=== PATIENT | female | born 1975 | race Caucasian/White ===

== ENCOUNTER 2020-04-10 16:55 | Emergency (ER) | payer OTHER, SELFPAY ==
--- NOTE | ~2020-04-10 | XR_ITS ---
EXAMINATION: XR chest 1V portable DATE: 04/10/2020 17:28 INDICATION: Shortness of breath, nausea and diarrhea TECHNIQUE: frontal view of the chest was obtained. COMPARISON: Chest radiograph dated 11/28/2017 FINDINGS: The lungs remain clear with no focal airspace opacities, pulmonary edema, pleural effusion or pneumot horax. Heart size is normal. Again seen is a moderate-sized hiatal hernia. Visualized bones and soft tissues are unremarkable. IMPRESSION: 1. No acute cardiopulmonary disease. 2. Moderate-sized hiatal hernia. Reviewed, dictated and finalized at location A.
--- NOTE | ~2020-04-10 | CT_ITS ---
EXAMINATION: CT abdomen pelvis w con DATE: 04/10/2020 18:39 INDICATION: Abdominal pain TECHNIQUE: Computed tomography (CT) of the abdomen and pelvis was performed with 100 mL Omnipaque-350 intravenous contrast. Automated exposure control and iterative reconstruction technique were employe d. The dose-length product was 1433.40 mGy-cm. COMPARISON: None FINDINGS: Mild discoid atelectasis at the lingula. Heart size is normal. No pericardial or pleural effusion. Mo derate-sized sliding-type hiatal hernia. Liver, gallbladder, spleen, pancreas, bilateral adrenal glan ds and kidneys are normal. Small fat-containing umbilical hernia. Oral contrast material throughout t he the bowels but no evident wall thickening or obstruction. There is also contrast within the normal appendix. Bladder, anteverted uterus and right adnexa are unremarkable. There appears be a tubal lig ation clip at the left adnexa. A second likely displaced tubal ligation clip is seen in the posterior left pelvis. No free intraperitoneal gas or fluid. No pathologically enlarged abdominal or pelvic ly mphadenopathy. Severe spondylosis at the thoracolumbar and lumbosacral junctions. Transitional partia lly lumbarized S1 segment. IMPRESSION: 1. No acute intra-abdominal/pelvic process. 2. Moderate-sized sliding-type hiatal hernia. 3. Small fat-containing umbilical hernia. 4. Likely tubal ligation clips at the left adnexa with a second likely displaced tubal ligation clip remote from the adnexa in the posterior left hemipelvis. Reviewed, dictated and finalized at location A. IMPRESSION: 1. No acute intra-abdominal/pelvic process. 2. Moderate-sized sliding-type hiatal hernia. 3. Small fat-containing umbilical hernia. 4. Likely tubal ligation clips at the left adnexa with a second likely displace d tubal ligation clip remote from the adnexa in the posterior left hemipelvis.
[2020-04-10 16:59] VITALS: BP 123/79; PULSE 96; RESP 20; TEMP 36.7; O2SAT 100
--- NOTE | 2020-04-10 17:18 | ED.ABDPAIN ---
HPI - Abdominal Pain General Chief Complaint: Abdominal Pain <VASYL De Oliveira Last Filed: 04/10/20 20:27> Stated Complaint: cough, fever <VASYL De Oliveira Filed: 04/10/20 20:27> Time Seen by Provider: 04/10/20 17:05 <VASYL De Oliveira Last Filed: 04/10/20 20:27> Source: patient <VASYL De Oliveira Last Filed: 04/10/20 20:27> Mode of arrival: ambulatory <VASYL De Oliveira Filed: 04/10/20 20:27> Limitations: no limitations <VASYL De Oliveira Filed: 04/10/20 20:27> History of Present Illness HPI narrative: Patient is a 45-year-old female who presents to emergency department for evaluation of abdominal pain localized to the right upper quadrant flank area that is been present for 1 month patient notes daily pain patient has not been seen for this complaint notes that over the last 3 days she has had some loose stools and intermittent vomiting patient presents per private vehicle in no distress does not appear uncomfortable is also had a cough that is nonproductive but denies other URI symptoms and does note 2 pack/day smoking history <VASYL De Oliveira Filed: 04/10/20 20:27> Related Data Home Medications: Home Medications Medication Instructions Recorded Confirmed albuterol sulfate INHALATION 04/10/20 cyclobenzaprine mg 04/10/20 indomethacin 04/10/20 lorazepam 04/10/20 norethindrone acetate mg 04/10/20 omeprazole 04/10/20 <VASYL De Oliveira Last Filed: 04/10/20 20:27> Allergies/Adverse Reactions: Allergies Allergy/AdvReac Type Severity Reaction Status Date / Time No Known Allergies Allergy Mild Verified 04/10/20 17:49 <VASYL De Oliveira Last Filed: 04/10/20 20:27> Review of Systems Review of Systems: All systems reviewed & are unremarkable except as noted in HPI and below <VASYL De Oliveira Last Filed: 04/10/20 20:27> [facility] Past Medical History Medical History: Medical History (Updated 04/10/20 @ 20:22 by Michael Metzger PA-C) Obesity <Michael Metzger PA-C - Last Filed: 04/10/20 20:27> Family History Family History: Family History (Updated 02/18/14 @ 09:29 by DOCTOR UNKNOWN) Other Cerebrovascular accident Diabetes mellitus Family history of arthritis Family history of cardiovascular disease Family history of gout Family history of malignant neoplasm Hypertension <Michael Metzger PA-C - Last Filed: 04/10/20 20:27> Social History Social History: Social History (Updated 04/10/20 @ 17:22 by Michael Metzger PA-C) Smoking status: Current every day smoker Alcohol intake: current <Michael Metzger PA-C - Last Filed: 04/10/20 20:27> Exam Narrative: Exam Narrative: GENERAL: Well-appearing, obese, and in no acute distress. HEAD: Normocephalic, atraumatic. EYES: PERRLA and EOMI. ENT: Nares clear, no rhinorrhea or epistaxis. Mucous membranes moist. Oropharynx without tonsillar hypertrophy exudate or other lesions. NECK: Supple. No adenopathy or masses. CHEST: Clear to auscultation. No respiratory distress. Coarse breath sounds with expiratory wheezes throughout HEART: Regular rate and rhythm. No murmur heard. Normal peripheral pulses. ABDOMEN: Soft, tenderness in the right abdomen no rebound or guarding, nondistended EXTREMITIES: Normal range of motion. No edema. SKIN: Warm, dry, no rash. NEURO: No focal deficits. Alert and oriented x3. PSYCH: Normal mood and affect. <Michael Metzger PA-C - Last Filed: 04/10/20 20:27> Course Course Emergency Course: Patient in the room at this time aware of case findings treatment plan and diagnosis patient feels comfortable for discharge home and follow-up with primary care patient. Was hydrated and given medications with improvement afebrile nontoxic-appearing without emesis guaiac negative. Patient will follow-up for her COPD and anemia findings and abdom
[2020-04-10 17:54] LABS: Basophils Absolute Auto 0.1 K/mm3 (0.0-0.1); Basophils Percent Auto 0.5 % (0.2-1.2); Eosinophils Absolute Auto 0.1 K/mm3 (0-0.3); Eosinophils Percent Auto 1.1 % (0-4.4); Immature Granulocyte Absolute 0.02 K/mm3 (0.00-0.031); Immature Granulocyte Percent A 0.2 % (0-0.5); Lymphocytes Percent Auto 19.7 % (18.3-44.2); Mean Corpuscular HGB Conc 27.6 g/dl (32-36); Mean Corpuscular Hemoglobin 19.8 pg (26-34); Mean Corpuscular Volume 71.6 fl (80-100); Mean Platelet Volume 11.4 fl (7.4-10.4); Monocytes Absolute Auto 0.7 K/mm3 (0.1-0.6); Monocytes Percent Auto 7.2 % (2.6-8.5); Neutrophils Absolute Auto 6.5 K/mm3 (1.3-6.7); Neutrophils Percent Auto 71.3 % (45.5-73.1); Platelet Count Result 227 k/mm3 (150-375); Red Blood Count 4.05 M/mm3 (4.2-5.4); Red Cell Distribution Width 19.4 % (11.5-14.5); White Blood Count 9.2 K/mm3 (4.5-10.0)
[2020-04-10 17:55] LABS: Add Urine Microscopic? YES; Appearance Urine Clear (Clear); Bacteria Urine Trace /hpf; Bilirubin Urine 1+ (Negative); Blood Urine Negative (Negative); Color Urine Yellow (Yellow); Glucose Urine UA Negative (Negative); Ketones Urine Negative (Negative); Leukocyte Esterase Ur Trace LEU/UL (Negative); Mucus Urine Heavy /lpf; Nitrate Urine Negative (Negative); Protein Urine 1+ mg/dL (Negative); RBC Urine 0-2 /hpf (0-2); Squamous Epithelial Cell Urine Many /hpf (Few); Urobilinogen Urine Negative mg/dL (<2.0); WBC Urine 0-3 /hpf
[2020-04-10 17:58] LABS: Specific Grav Ur 1.031 (1.001-1.035)
[2020-04-10] MEDS: SODIUM CHLORIDE 0.9% IV 1,000 ML 999 ML IV CONT (17:58)
[2020-04-10] MEDS: ONDANSETRON INJ 4 MG/2 ML VIAL IV PUSH (17:58)
[2020-04-10] MEDS: FAMOTIDINE 20 MG/2 ML VIAL IV PUSH (17:59)
[2020-04-10 18:00] LABS: Prothrombin Time 13.1 Seconds (11.1-14.7)
[2020-04-10 18:01] LABS: Partial Thromboplastin Time 27.2 SECONDS (22.3-36.8)
[2020-04-10 18:04] LABS: Platelet Estimate Adequate (Adequate)
[2020-04-10 18:05] LABS: Anisocytosis 1+ (NORMAL); Hypochromasia 1+ (NORMAL)
[2020-04-10 18:07] LABS: Alanine Aminotransferase 15 U/L (4-35); Albumin Level 3.9 g/dL (3.5-5.1); Alkaline Phosphatase 47 U/L (38-126); Amphetamine Screen Urine Negative (Negative); Anion Gap 7 mmol/L (8-16); Aspartate Amino Transferase 21 U/L (14-36); Barbiturate Screen Urine Negative (Negative); Benzodiazepines Screen Urine Positive (Negative); Bilirubin,Total 0.4 mg/dL (0.2-1.3); Blood Urea Nitrogen 11 mg/dL (7-17); CRP 0.7 mg/dL (<1.0); Calcium 8.7 mg/dL (8.4-10.2); Cannabinoid Screen Urine Negative (Negative); Carbon Dioxide 24 mmol/L (22-30); Chloride 112 mmol/L (98-107); Cocaine Screen Urine Negative (Negative); Estimated CRCL calculation 84 ml/min; Estimated Glomerular Filt Rate > 60; Glucose 115 mg/dL (65-105); Lipase 49 U/L (23-300); Methadone Screen Urine Negative (Negative); Opiate Screen Urine Negative (Negative); Phencyclidine Screen Urine Negative (Negative); Sodium 143 mmol/L (137-145)
--- NOTE | 2020-04-10 18:27 | PC.NURSE ---
Pt's blood being redrawn due to hemolyzation.
--- NOTE | 2020-04-10 19:15 | PC.NURSE ---
Report to REBECCA Green, to continue care.
--- NOTE | 2020-04-10 19:34 | PC.NURSE ---
Assumed care of patient at this time. Patient report received from REBECCA Ferrell.
[2020-04-10 19:49] LABS: Lactic Acid Reflex 0.8 mmol/L (0.7-2.1)
[2020-04-10 19:52] LABS: Alveolar/Arterial O2 Gradient 11.2 mmHg; Base Excess ABG -3.6 mEq/l (+/-2.0); Carboxyhemoglobin 1.1 % THb (0-2.0); Fractional Inspired Oxygen 21 %; HCO3 ABG 20.3 mEq/l (22.0-26.0); Methemoglobin ABG 0.4 %THb (0-1.5); Oxygen Content ABG 10.5 %vol (16.0-22.0); Oxygen Saturation ABG 97.8 % (95.0-100.0); Oxyhemoglobin 95.5 % THb (90.0-100.0); PCO2 ABG 31.6 mmHg (35.0-45.0); PO2 ABG 100.7 mmHg (80.0-100.0); pH ABG 7.425 (7.350-7.450)
[2020-04-10 19:53] LABS: Device ROOM AIR; Site Drawn RIGHT BRACHIAL; Total Hemoglobin 7.7 g/dL (12.0-18.0)
[2020-04-10 20:07] VITALS: BP 106/59; BP 117/49; PULSE 84; PULSE 88
[2020-04-10 20:08] VITALS: BP 113/79; PULSE 88
--- NOTE | 2020-04-10 20:15 | PC.NURSE ---
Patient ambulated with a steady gait to the bathroom and back to her room.
== END 2020-04-10 20:36 | disposition home or self-care (01) ==
PROVIDERS: Emergency Medicine Emergency Medical Services; Emergency Provider General Practice; PCP Family Medicine Adolescent Medicine
DX: J44.1 Chronic obstructive pulmonary disease with (acute) exacerbation (principal); D64.9 Anemia, unspecified; R10.11 Right upper quadrant pain; F17.210 Nicotine dependence, cigarettes, uncomplicated; E66.9 Obesity, unspecified; Z68.41 Body mass index [BMI] 40.0-44.9, adult; K44.9 Diaphragmatic hernia without obstruction or gangrene; K42.9 Umbilical hernia without obstruction or gangrene
CPT/HCPCS: 36415; 36600; 71045; 74177; 80053; 80307; 81001; 82375; 82805; 83050; 83605; 83690; 85025; 85055; 85610; 85730; 86140; 96361; 96365; 96375; 99284; J0131; J2405; J7030; Q9967

== ENCOUNTER 2021-06-13 14:22 | Emergency (ER) | payer OTHER, SELFPAY ==
[2021-06-13 14:32] VITALS: BP 101/83; PULSE 72; RESP 16; TEMP 36.7; O2SAT 100
--- NOTE | 2021-06-13 14:48 | ED.EXTPRO ---
HPI - Extremity Problem General Chief complaint: Extremity Problem,Nontraumatic Stated complaint: Left Leg Pain Time Seen by Provider: 06/13/21 14:35 Source: patient and RN notes reviewed Mode of arrival: ambulatory Limitations: no limitations History of Present Illness HPI Narrative: Vaishnavi is a 46-year-old female patient ambulated into the [facility]. Patient states she fell at work on motion that was on the floor greater than 2 months ago. Patient states she originally had spasms and cramps to the left leg that she treated with magnesium, vitamin D and calcium. Patient states she is has had pain to the back of the knee and the left buttock since the injury. Patient is currently already on gabapentin, indomethacin, Flexeril, and tramadol from her primary care physician. Patient states she is also use Motrin or Tylenol and heat as needed. Patient states that the left hip pain is only when she is sleeping for long periods of time. Patient states she just picked up 120 tramadol on 06/01. MD Complaint: extremity pain Related Data Home Medications Medication Instructions Recorded Confirmed cyclobenzaprine mg 04/10/20 10/19/20 indomethacin 04/10/20 10/19/20 norethindrone acetate mg 04/10/20 10/19/20 omeprazole 04/10/20 10/19/20 dicyclomine 20 mg tablet 20 mg PO BID 09/30/20 10/19/20 gabapentin 300 mg capsule 300 mg PO BID 09/30/20 10/19/20 oxybutynin chloride 5 mg tablet 5 mg PO DAILY 09/30/20 10/19/20 furosemide 20 mg tablet 20 mg PO QAM 10/12/20 10/19/20 albuterol sulfate INHALATION 06/13/21 Allergies Allergy/AdvReac Type Severity Reaction Status Date / Time No Known Allergies Allergy Mild Verified 06/13/21 14:39 Review of Systems Review of Systems: CONSTITUTIONAL: Denies body aches, fever, chills, or sweats. EYES: Denies visual changes, redness, or discharge. ENT: Denies rhinorrhea, congestion, sore throat, or otalgia. CARDIOVASCULAR: Denies chest pain, palpitations, or edema. RESPIRATORY: Denies cough or dyspnea. GASTROINTESTINAL: Denies abdominal pain, nausea, vomiting, or diarrhea. GENITOURINARY: Denies dysuria or hematuria. SKIN: Denies rash, itching, or wounds. MUSCULOSKELETAL: + left knee pain and hip pain when sleeping NEUROLOGIC: Denies headache, numbness, tingling, or weakness. PSYCH: Denies depression or anxiety. All systems reviewed & are unremarkable except as noted in HPI and below PMFSH Past Medical History Medical History Obesity Overactive bladder Surgical History Surgical History History of colonoscopy History of esophagogastroduodenoscopy (EGD) History of tubal ligation Family History Family History Father Diabetes mellitus Hypertension Grandparent Carcinoma of colon Other Cerebrovascular accident Family history of arthritis Family history of cardiovascular disease Family history of gout Family history of malignant neoplasm Social History Social History Smoking packs per day: 1 Smoking cigarettes per day: 20.0 Years smoked: 20 Smoking pack-years: 20.00 Smoking status: Current every day smoker Tobacco type: cigarettes Alcohol intake: current 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 Please see nursing chart for further information. There is no relevant family history pertinent to the presenting complaint Exam Narrative: GENERAL: Well-appearing, well-nourished, and in no acute distress. HEAD: Normocephalic, atraumatic. EYES: EOMI. No redness or drainage. Conjunctivae normal. ENT: Mucous membranes pink and moist. Nares clear. No rhinorrhea. NECK: Normal AROM. Supple.
== END 2021-06-13 15:00 | disposition home or self-care (01) ==
PROVIDERS: Emergency Provider Nurse Practitioner Family; PCP Family Medicine Adolescent Medicine
DX: M25.561 Pain in right knee (principal); F17.210 Nicotine dependence, cigarettes, uncomplicated; E66.9 Obesity, unspecified; Z68.41 Body mass index [BMI] 40.0-44.9, adult
CPT/HCPCS: 99213; G0463

== ENCOUNTER 2021-10-17 18:05 | Emergency (ER) | payer OTHER, SELFPAY ==
--- NOTE | ~2021-10-17 | CT_ITS ---
EXAMINATION: CT abdomen pelvis w con EXAM DATE: 10/17/2021 23:27 INDICATION: Right abdominal pain. Nausea and diarrhea and chills. TECHNIQUE: Spiral CT of the abdomen and pelvis was performed following intravenous injection of 100 m L Omnipaque 350. Axial, coronal and sagittal images of the abdomen and pelvis were reviewed. The do se-length product (DLP) for this examination was 1313.87 mGy-cm. The exposure was tailored according to patient size (auto mA exposure control), and iterative reconstruction (ASIR) was used as addition al dose reduction technique. Comparison is made to prior examination from 04/10/2020. FINDINGS: The liver, spleen, adrenal glands and pancreas are unremarkable. Gallbladder is unremarkab le. No biliary obstruction. Portal and splenic veins are patent. Kidneys enhance symmetrically. T here is no hydronephrosis. The uterus is unremarkable. The bladder is unremarkable. There is no retroperitoneal or pelvic lymphadenopathy. Small umbilical fat-containing hernia. The appendix is normal. There is moderate-sized gastroesophageal hiatal hernia with adjacent subsegm ental atelectasis. There is expected amount of colonic stool. No free intraperitoneal gas. The h eart is normal in size. There are no pericardial or pleural effusions. The lung bases are unremarka ble. There are no osteoblastic or osteolytic lesions identified. IMPRESSION: 1. No acute intra-abdominal findings. 2. Moderate-sized gastroesophageal hiatal hernia. Reviewed, dictated and finalized at location B.
[2021-10-17 18:16] VITALS: BP 149/117; PULSE 87; RESP 17; TEMP 36.9; O2SAT 100
--- NOTE | 2021-10-17 19:58 | ED.ABDPAIN ---
HPI - Abdominal Pain General Chief Complaint: Abdominal Pain Stated Complaint: RUQ pain Time Seen by Provider: 10/17/21 19:58 Source: patient Mode of arrival: ambulatory Limitations: no limitations History of Present Illness HPI narrative: Patient is 46 years old white female Related Data Home Medications Medication Instructions Recorded Confirmed indomethacin 04/10/20 08/11/21 norethindrone acetate mg 04/10/20 08/11/21 gabapentin 300 mg capsule 300 mg PO BID 09/30/20 08/11/21 ferrous sulfate 325 mg (65 mg 325 mg PO DAILY 08/11/21 08/11/21 iron) tablet vitamin B complex 1 tablet PO DAILY 08/11/21 08/11/21 Allergies Allergy/AdvReac Type Severity Reaction Status Date / Time No Known Allergies Allergy Mild Verified 08/11/21 09:33 [facility] Past Medical History Medical History (Updated 08/09/21 @ 10:03 by Isabela Mendoza PA-C) Chronic low back pain Obesity Overactive bladder Umbilical hernia Surgical History Surgical History History of colonoscopy History of esophagogastroduodenoscopy (EGD) History of tubal ligation Family History Family History (Updated 08/11/21 @ 09:38 by Vangie Patton MA) Father Diabetes mellitus Hypertension Cerebrovascular accident Grandparent Carcinoma of colon Family history of malignant neoplasm Father Acute myocardial infarction Colon polyp Family history of gout Mother Depression Other Family history of arthritis Social History Social History (Updated 08/11/21 @ 09:39 by Vangie Patton MA) Smoking packs per day: 1.2 Smoking cigarettes per day: 24.0 Years smoked: 20 Smoking pack-years: 24.00 Smoking status: Current every day smoker Tobacco type: cigarettes Alcohol intake: former Substance use: never Substance use type: does not use 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 Gender identity (if verbalized by the patient): Female Sexual Orientation (if Verbalized by the Patient): Straight or Heterosexual Spiritual care concerns: No Agree to blood products: Yes Course Vital Signs Vital signs: Vital Signs Temperature 36.9 C 10/17/21 18:16 Pulse Rate 87 10/17/21 18:16 Respiratory Rate 17 10/17/21 18:16 Blood Pressure 149/117 H 10/17/21 18:16 Pulse Oximetry 100 10/17/21 18:16 Temperature 36.9 C 10/17/21 18:16 Pulse Rate 87 10/17/21 18:16 Respiratory Rate 17 10/17/21 18:16 Blood Pressure 149/117 H 10/17/21 18:16 Pulse Oximetry 100 10/17/21 18:16 Discharge Plan Discharge Prescriptions: No Action gabapentin 300 mg capsule 300 mg PO BID RF: 0 ferrous sulfate [Feosol] 325 mg (65 mg iron) tablet 325 mg PO DAILY RF: 0 vitamin B complex [B Complex-Vitamin B12] Tablet 1 tablet PO DAILY RF: 0 bupropion HCl 150 mg tablet sustained-release 12 hr 150 mg PO BID Qty: 60 RF: 2 indomethacin 50 mg capsule RF: 0 norethindrone acetate 5 mg tablet RF: 0 cyclobenzaprine 10 mg tablet 10 mg PO TID PRN (Reason: muscle spasm) Qty: 30 RF: 3 albuterol sulfate 90 mcg/actuation HFA aerosol inhaler 2 inh INHALATION QID PRN (Reason: shortness of breath or wheezing) Qty: 8.5 RF: 4 trazodone 50 mg tablet 50 mg PO QHS PRN (Reason: insomnia) Qty: 30 RF: 2 tramadol 50 mg tablet See Rx Instructions PO Q6H PRN (Reason: pain) Qty: 120 RF: 3 omeprazole 20 mg capsule,delayed release(DR/EC) 20 mg PO BID Qty: 60 RF: 5
[2021-10-17] MEDS: SODIUM CHLORIDE 0.9% IV 1,000 ML 999 ML IV CONT (20:25)
[2021-10-17 20:35] LABS: Basophils Absolute Auto 0.1 K/mm3 (0.0-0.1); Basophils Percent Auto 0.5 % (0.2-1.2); Eosinophils Absolute Auto 0.1 K/mm3 (0-0.3); Eosinophils Percent Auto 0.9 % (0-4.4); Hematocrit 42.5 % (37.0-47.0); Hemoglobin 13.8 g/dL (12.0-15.0); Immature Granulocyte Absolute 0.02 K/mm3 (0.00-0.031); Immature Granulocyte Percent A 0.2 % (0-0.5); Lymphocytes Absolute Auto 2.39 K/mm3 (0.9-3.2); Lymphocytes Percent Auto 26.1 % (18.3-44.2); Mean Corpuscular HGB Conc 32.5 g/dl (32-36); Mean Corpuscular Hemoglobin 28.4 pg (26-34); Mean Corpuscular Volume 87.4 fl (80-100); Mean Platelet Volume 10.9 fl (7.4-10.4); Monocytes Absolute Auto 0.6 K/mm3 (0.1-0.6); Monocytes Percent Auto 6.6 % (2.6-8.5); Neutrophils Percent Auto 65.7 % (45.5-73.1); Platelet Count Result 256 k/mm3 (150-375); Red Blood Count 4.86 M/mm3 (4.2-5.4); Red Cell Distribution Width 15.3 % (11.5-14.5); White Blood Count 9.2 K/mm3 (4.5-10.0)
[2021-10-17 20:42] LABS: Appearance Urine Clear (Clear); Bilirubin Urine 2+ (Negative); Glucose Urine UA Negative (Negative); Ketones Urine 2+ mg/dL (Negative); Leukocyte Esterase Ur Trace LEU/UL (Negative); Nitrate Urine Negative (Negative); Protein Urine 1+ mg/dL (Negative); Specific Grav Ur >= 1.030 (1.001-1.035)
[2021-10-17 20:47] LABS: Add Urine Microscopic? YES; Blood Urine Trace-Intact (Negative); Color Urine Dark Brown (Yellow)
[2021-10-17 21:07] LABS: Bacteria Urine Trace /hpf; Mucus Urine Heavy /lpf; RBC Urine 0-2 /hpf (0-2); Squamous Epithelial Cell Urine Many /hpf (Few)
[2021-10-17] MEDS: ONDANSETRON INJ 4 MG/2 ML VIAL IV PUSH (21:48)
[2021-10-17] MEDS: MORPHINE SULFATE (*CRX) 4 MG/ML INJ IV PUSH (21:50)
--- NOTE | 2021-10-17 22:20 | PC.NURSE ---
RN called lab about pending CMP. Lab states CMP will be released soon per lab. PT and CT made aware.
[2021-10-17 22:41] VITALS: BP 154/88; PULSE 89; RESP 16; O2SAT 98
--- NOTE | 2021-10-17 22:46 | PC.NURSE ---
attempted to call lab about CMP with no answer.
--- NOTE | 2021-10-17 22:52 | PC.NURSE ---
RN attempted to reach lab multiple times with no success. TORINA stated she was able to get a hold of lab and they state the pateints CMP that has been pending for an hour half is hemolyzed and needs redrawn.
[2021-10-17 23:15] LABS: Alanine Aminotransferase 13 U/L (4-35); Albumin Level 3.6 g/dL (3.5-5.1); Alkaline Phosphatase 60 U/L (38-126); Anion Gap 8 mmol/L (8-16); Aspartate Amino Transferase 22 U/L (14-36); Bilirubin,Total 0.6 mg/dL (0.2-1.3); Blood Urea Nitrogen 14 mg/dL (7-17); Calcium 7.8 mg/dL (8.4-10.2); Carbon Dioxide 15 mmol/L (22-30); Chloride 116 mmol/L (98-107); Estimated Glomerular Filt Rate > 60; Glucose 90 mg/dL (65-110); Potassium 3.5 mmol/L (3.4-5.0); Sodium 139 mmol/L (137-145)
[2021-10-17 23:28] LABS: Lipase 53 U/L (23-300)
[2021-10-18 00:55] VITALS: BP 150/93; PULSE 82; RESP 16; TEMP 36.8; O2SAT 98
--- NOTE | 2021-10-18 01:03 | ED.ABDPAIN ---
HPI - Abdominal Pain General Chief Complaint: Abdominal Pain Stated Complaint: RUQ pain Time Seen by Provider: 10/17/21 19:58 Source: patient Mode of arrival: ambulatory Limitations: no limitations Related Data Home Medications Medication Instructions Recorded Confirmed indomethacin 04/10/20 08/11/21 norethindrone acetate mg 04/10/20 08/11/21 gabapentin 300 mg capsule 300 mg PO BID 09/30/20 08/11/21 ferrous sulfate 325 mg (65 mg 325 mg PO DAILY 08/11/21 08/11/21 iron) tablet vitamin B complex 1 tablet PO DAILY 08/11/21 08/11/21 Allergies Allergy/AdvReac Type Severity Reaction Status Date / Time No Known Allergies Allergy Mild Verified 08/11/21 09:33 [facility] Past Medical History Medical History (Updated 10/18/21 @ 01:03 by Lata Abernathy PA-C) Chronic low back pain Obesity Overactive bladder Umbilical hernia Surgical History Surgical History History of colonoscopy History of esophagogastroduodenoscopy (EGD) History of tubal ligation Family History Family History (Updated 08/11/21 @ 09:38 by Vangie Patton MA) Father Diabetes mellitus Hypertension Cerebrovascular accident Grandparent Carcinoma of colon Family history of malignant neoplasm Father Acute myocardial infarction Colon polyp Family history of gout Mother Depression Other Family history of arthritis Social History Social History (Updated 08/11/21 @ 09:39 by Vangie Patton MA) Smoking packs per day: 1.2 Smoking cigarettes per day: 24.0 Years smoked: 20 Smoking pack-years: 24.00 Smoking status: Current every day smoker Tobacco type: cigarettes Alcohol intake: former Substance use: never Substance use type: does not use 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[employer] Gender identity (if verbalized by the patient): Female Sexual Orientation (if Verbalized by the Patient): Straight or Heterosexual Spiritual care concerns: No Agree to blood products: Yes Course Vital Signs Vital signs: Vital Signs Temperature 98.5 F 10/17/21 18:16 Pulse Rate 87 10/17/21 18:16 Respiratory Rate 17 10/17/21 18:16 Blood Pressure 149/117 H 10/17/21 18:16 Pulse Oximetry 100 10/17/21 18:16 Temperature 98.2 F 10/18/21 00:55 Pulse Rate 82 10/18/21 00:55 Respiratory Rate 16 10/18/21 00:55 Blood Pressure 150/93 H 10/18/21 00:55 Pulse Oximetry 98 10/18/21 00:55 MDM - Abdominal Pain Lab Data Result diagrams: 10/17/21 20:26 10/17/21 22:57 Labs: Lab Results 10/17/21 10/17/21 10/17/21 Range/Units 20:03 20:26 20:26 WBC 9.2 (4.5-10.0) K/mm3 RBC 4.86 (4.2-5.4) M/mm3 Hgb 13.8 D (12.0-15.0) g/dL Hct 42.5 (37.0-47.0) % MCV 87.4 (80-100) fl MCH 28.4 (26-34) pg MCHC 32.5 (32-36) g/dl RDW 15.3 H (11.5-14.5) % Plt Count 256 (150-375) k/mm3 MPV 10.9 H (7.4-10.4) fl Immature Gran % (Auto) 0.2 (0-0.5) % Neut % (Auto) 65.7 (45.5-73.1) % Lymph % (Auto) 26.1 (18.3-44.2) % Moore % (Auto) 6.6 (2.6-8.5) % Eos % (Auto) 0.9 (0-4.4) % Baso % (Auto) 0.5 (0.2-1.2) % Lymph # (Auto) 2.39 (0.9-3.2) K/mm3 Moore # (Auto) 0.6 (0.1-0.6) K/mm3 Eos # (Auto) 0.1 (0-0.3) K/mm3 Baso # (Auto) 0.1 (0.0-0.1) K/mm3 Abs Immat Gran (auto) 0.02 (0.00-0.031) K/mm3 Absolute Neuts (auto) 6.0 (1.3-6.7) K/mm3 Absolute Nucleated RBC 0.0 (0.0-0.012) K/mm3 Nucleated RBC % 0.0 (0.0-0.2) % Sodium Cancelled Potassium Cancelled Chloride Cancelled Carbon Dioxide Cancelled Anion Gap Cancelled BUN Cancelled Creatinine Cancelled Estim Creat Clear Calc Cancelled Estimated GFR Cancelled Glucose Cancelled Calcium Cancelled Total Bilirubin Cancelled AST Cancelled ALT Cancelled Alkaline Phosphatase Cancelled Total Prote
--- NOTE | 2021-10-25 17:59 | ED.ABDPAIN ---
HPI - Abdominal Pain General Chief Complaint: Abdominal Pain Stated Complaint: RUQ pain Time Seen by Provider: 10/17/21 19:58 Source: patient Mode of arrival: ambulatory Limitations: no limitations History of Present Illness HPI narrative: Patient is 26 years old white female presents with intermittent abdominal pain for 1 month. Associated with chills, decreased appetite and nausea and diarrhea. Patient reports her symptoms are getting worse. Related Data Home Medications Medication Instructions Recorded Confirmed indomethacin 04/10/20 10/19/21 norethindrone acetate mg 04/10/20 10/19/21 gabapentin 300 mg capsule 300 mg PO BID 09/30/20 10/19/21 ferrous sulfate 325 mg (65 mg 325 mg PO DAILY 08/11/21 10/19/21 iron) tablet vitamin B complex 1 tablet PO DAILY 08/11/21 10/19/21 Allergies Allergy/AdvReac Type Severity Reaction Status Date / Time No Known Allergies Allergy Mild Verified 10/19/21 09:15 Review of Systems Review of Systems: CONSTITUTIONAL: Denies fever, chills, or sweats. EYES: Denies visual changes, redness, or discharge. ENT: Denies rhinorrhea, congestion, sore throat, or otalgia. CARDIOVASCULAR: Denies chest pain, palpitations, or edema. RESPIRATORY: Denies cough or dyspnea. GASTROINTESTINAL: Denies abdominal pain, nausea, vomiting, or diarrhea. GENITOURINARY: Denies dysuria or hematuria. SKIN: Denies rash or itching. MUSCULOSKELETAL: Denies back pain, joint pain, or myalgia. NEUROLOGIC: Denies headache, numbness, or weakness. PSYCHIATRIC: Denies anxiety or depression. [facility] Past Medical History Medical History Chronic low back pain Obesity Overactive bladder Umbilical hernia Surgical History Surgical History History of colonoscopy History of esophagogastroduodenoscopy (EGD) History of tubal ligation Family History Family History Father Diabetes mellitus Hypertension Cerebrovascular accident Grandparent Carcinoma of colon Family history of malignant neoplasm Father Acute myocardial infarction Colon polyp Family history of gout Mother Depression Other Family history of arthritis Social History Social History Smoking packs per day: 1.2 Smoking cigarettes per day: 24.0 Years smoked: 20 Smoking pack-years: 24.00 Smoking status: Current every day smoker Tobacco type: cigarettes Alcohol intake: former Substance use: never Substance use type: does not use 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 Gender identity (if verbalized by the patient): Female Sexual Orientation (if Verbalized by the Patient): Straight or Heterosexual Spiritual care concerns: No Agree to blood products: Yes Exam Narrative: General appearance: Well-developed, well-nourished Skin: Normal color Head: Normocephalic, nontraumatic Eyes: Clear conjunctiva ENT: Oropharynx normal, ears normal, nose normal Neck: Supple, nontender Chest and respiratory: Airway patent, no respiratory distress, no accessory muscle use Heart: Regular rate/rhythm Abdomen: Soft, mild diffuse tenderness,, no organomegaly, quiet bowel sounds Vascular: Normal peripheral pulses, normal capillary refill. Musculoskeletal: Normal range of motion, nontender back Neurologic: Alert and oriented ?3, MANAGEMENT PSYCHOLOGIST is normal as tested, no gross motor deficit Course Course Emergency Course: Stable Vital Signs Vital signs: Vital Signs Temperature 36.9 C 10/17/21 18:16 Pulse Rate 87 10/17/21 18:16 Respirato
== END 2021-10-18 01:13 | disposition home or self-care (01) ==
PROVIDERS: Physician Assistant; Emergency Provider Emergency Medicine; PCP Family Medicine Adolescent Medicine
DX: R10.9 Unspecified abdominal pain (principal); N32.81 Overactive bladder; E66.9 Obesity, unspecified; F17.210 Nicotine dependence, cigarettes, uncomplicated; K44.9 Diaphragmatic hernia without obstruction or gangrene
CPT/HCPCS: 36415; 74177; 80053; 81001; 83690; 85025; 96361; 96374; 96375; 99284; J2270; J2405; J7030; Q9967

== ENCOUNTER 2022-04-16 05:40 | Emergency (ER) | payer OTHER, SELFPAY ==
--- NOTE | ~2022-04-16 | XR_ITS ---
EXAMINATION: XR chest 2V DATE: 04/16/2022 06:20 INDICATION: Chest and back pain. TECHNIQUE: Frontal and lateral views of the chest were obtained. COMPARISON: Chest single view 04/10/2020, CT abdomen and pelvis 10/17/2021 FINDINGS: The chest demonstrates clear lungs without pneumonia, pleural effusion, or pneumothorax. Th e heart size is normal. There is a large hiatal hernia. IMPRESSION: 1. Large hiatal hernia. Reviewed, dictated and finalized at location A. IMPRESSION: 1. Large hiatal hernia.
--- NOTE | ~2022-04-16 | CT_ITS ---
EXAMINATION: CTA chest PE protocol DATE: 04/16/2022 08:11 INDICATION: Shortness of breath. TECHNIQUE: Computed tomography angiography (CTA) of the chest was performed with 100 mL Omnipaque-350 intravenous contrast timed to evaluate the pulmonary arteries. Coronal maximum intensity projection 3D-reconstructions were created by the technologist. Automated exposure control and iterative reconst ruction technique were employed. The dose-length product was 795.56 mGy-cm. COMPARISON: CT abdomen and pelvis 10/17/2021 FINDINGS: The lungs demonstrate minimal atelectasis. No pleural effusion. The heart size is normal. N o pericardial effusion. There is a large sliding hiatal hernia. There is no pulmonary embolus. There is mild thoracic spondylosis. IMPRESSION: 1. No pulmonary embolus. 2. Large sliding hiatal hernia. Reviewed, dictated and finalized at location A.
[2022-04-16 05:45] VITALS: BP 139/58; PULSE 108; RESP 20; TEMP 36.3; O2SAT 99
[2022-04-16 05:50] VITALS: BP 165/81; PULSE 95; RESP 17; O2SAT 99
--- NOTE | 2022-04-16 05:55 | ED.BACK ---
HPI - Back Pain/Injury General Chief Complaint: Back Pain/Injury Stated Complaint: back pain Time Seen by Provider: 04/16/22 05:51 History of Present Illness HPI Narrative: This is a 47-year-old female with past medical history of wheezing, GERD, who presents to the emergency department complaining of upper back pain beginning this morning. The patient states she woke and noted a sore like 8 out of 10 back pain radiating towards the axilla. She notes sleeping on the back aggravated the pain. She also notes some wheezing and cough. She denies any known sick contacts, fevers, chills, abdominal pain, lightheadedness or loss of consciousness. Related Data Home Medications Medication Instructions Recorded Confirmed norethindrone acetate 5 mg tablet mg 04/10/20 10/19/21 gabapentin 300 mg capsule 300 mg PO BID 09/30/20 10/19/21 ferrous sulfate 325 mg (65 mg 325 mg PO DAILY 08/11/21 10/19/21 iron) tablet (Feosol) vitamin B complex (B 1 tablet PO DAILY 08/11/21 10/19/21 Complex-Vitamin B12 tablet) Allergies Allergy/AdvReac Type Severity Reaction Status Date / Time No Known Allergies Allergy Mild Verified 04/16/22 05:50 Review of Systems Review of Systems: CONSTITUTIONAL: Denies fever, chills, or sweats. EYES: Denies visual changes, redness, or discharge. ENT: Denies rhinorrhea, congestion, sore throat, or otalgia. CARDIOVASCULAR: Denies chest pain, palpitations, or edema. RESPIRATORY: Denies cough or dyspnea. GASTROINTESTINAL: Denies abdominal pain, nausea, vomiting, or diarrhea. GENITOURINARY: Denies dysuria or hematuria. SKIN: Denies rash or itching. MUSCULOSKELETAL: Back pain Denies joint pain, or myalgia. NEUROLOGIC: Denies headache, numbness, dizziness, or weakness. PSYCHIATRIC: Denies anxiety or depression. [facility] Past Medical History Medical History Chronic low back pain Obesity Overactive bladder Umbilical hernia Surgical History Surgical History History of colonoscopy History of esophagogastroduodenoscopy (EGD) History of tubal ligation Family History Family History Father Diabetes mellitus Hypertension Cerebrovascular accident Grandparent Carcinoma of colon Family history of malignant neoplasm Father Acute myocardial infarction Colon polyp Family history of gout Mother Depression Other Family history of arthritis Social History Social History Smoking packs per day: 1.2 Smoking cigarettes per day: 24.0 Years smoked: 20 Smoking pack-years: 24.00 Smoking status: Current every day smoker Tobacco type: cigarettes Alcohol intake: former Substance use: never Substance use type: does not use 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 EYES: PERRLA and EOMI. ENT: Nares clear, no rhinorrhea or epistaxis. Mucous membranes moist. Oropharynx without tonsillar hypertrophy exudate or other lesions. NECK: Supple. No adenopathy or masses. No carotid bruits or JVD CHEST: Mild expiratory wheeze in the bilateral posterior lung macdonald with good aeration no respiratory distress. No rales or rhonchi HEART: Tachycardic with regular rhythm. No murmur heard. Normal peripheral pulses. ABDOMEN: Soft, nontender, nondistended, normal active bowel sounds. BACK: No obvious mass, rash or erythema. The right back in the midclavicular line across the third to the seventh rib spaces is tender to palpation EXTREMITIES: Normal range of motion. No edema. SKIN: Warm,
--- NOTE | 2022-04-16 06:02 | PC.NURSE ---
RT at bedside to give breathing treatment.
[2022-04-16 06:04] VITALS: PULSE 91; RESP 20
[2022-04-16] MEDS: ALBUTEROL SULFATE NEB 2.5 MG/3 ML INH 5 MG INHALATION (06:04)
--- NOTE | 2022-04-16 06:10 | PCRCNOTE ---
PT SHORT OF BREATH DUE TO INTENSE PAIN. SLIGHT WHEEZES NOTED EXPIRATORY BILATERAL
[2022-04-16 06:11] VITALS: PULSE 95; RESP 18
[2022-04-16] MEDS: LIDOCAINE 5% PATCH 1 PATCH TRANSDERM (06:14)
--- NOTE | 2022-04-16 06:17 | PC.NURSE ---
Patient taken to xray via w/c.
--- NOTE | 2022-04-16 06:37 | ECG_ITS ---
Measurements Intervals [place] Rate: 83 P: 21 ME: 136 QRS: 11 QRSD: 89 T: 4 QT: 376 QTc: 443 Interpretive Statements SINUS RHYTHM NORMAL EKG NO PRIOR TRACING Electronically Signed On 04-17-2022 13:00:27 CDT by Leslie Sultana M.D.
[2022-04-16 06:56] LABS: Basophils Absolute Auto 0.1 K/mm3 (0.0-0.1); Basophils Percent Auto 0.6 % (0.2-1.2); Eosinophils Absolute Auto 0.1 K/mm3 (0-0.3); Eosinophils Percent Auto 1.1 % (0-4.4); Hematocrit 43.9 % (37.0-47.0); Hemoglobin 14.5 g/dL (12.0-15.0); Immature Granulocyte Absolute 0.03 K/mm3 (0.00-0.031); Immature Granulocyte Percent A 0.3 % (0-0.5); Lymphocytes Absolute Auto 2.73 K/mm3 (0.9-3.2); Mean Corpuscular Hemoglobin 27.8 pg (26-34); Mean Corpuscular Volume 84.3 fl (80-100); Monocytes Absolute Auto 0.6 K/mm3 (0.1-0.6); Monocytes Percent Auto 5.8 % (2.6-8.5); Neutrophils Percent Auto 66.2 % (45.5-73.1); Platelet Count Result 251 k/mm3 (150-375); Red Blood Count 5.21 M/mm3 (4.2-5.4); Red Cell Distribution Width 17.6 % (11.5-14.5); White Blood Count 10.5 K/mm3 (4.5-10.0)
[2022-04-16 07:06] LABS: Alanine Aminotransferase 15 U/L (6-35); Albumin Level 4.7 g/dL (3.5-5.1); Alkaline Phosphatase 73 U/L (38-126); Anion Gap 13 mmol/L (8-16); Aspartate Amino Transferase 19 U/L (14-36); Bilirubin,Total 0.4 mg/dL (0.2-1.3); Blood Urea Nitrogen 16 mg/dL (7-17); Carbon Dioxide 21 mmol/L (22-30); Chloride 108 mmol/L (98-107); Estimated Glomerular Filt Rate > 60; Glucose 113 mg/dL (65-110); Potassium 3.5 mmol/L (3.4-5.0); Sodium 142 mmol/L (137-145)
[2022-04-16 07:17] LABS: Troponin I < 0.012 ng/mL (0.000-0.034)
[2022-04-16 07:24] VITALS: BP 115/59; PULSE 80; RESP 16; O2SAT 100
[2022-04-16] MEDS: KETOROLAC 30 MG/ML VIAL (*BKC) IV PUSH (07:40)
[2022-04-16 07:50] LABS: D Dimer 0.56 ug/mL (<0.48)
[2022-04-16 09:37] VITALS: PULSE 84; RESP 18; O2SAT 100
== END 2022-04-16 08:39 | disposition home or self-care (01) ==
PROVIDERS: Emergency Medicine; Emergency Provider Preventive Medicine Aerospace Medicine; PCP Family Medicine Adolescent Medicine
DX: M54.6 Pain in thoracic spine (principal); J44.1 Chronic obstructive pulmonary disease with (acute) exacerbation; F17.210 Nicotine dependence, cigarettes, uncomplicated; Z79.51 Long term (current) use of inhaled steroids
CPT/HCPCS: 36415; 71046; 71275; 80053; 84484; 85025; 85380; 93005; 94640; 96374; 96375; 99284; A9270; J0131; J1885; Q9967

== ENCOUNTER 2023-02-01 16:56 | Emergency (ER) | payer OTHER, SELFPAY ==
[2023-02-01 17:54] VITALS: BP 148/84; PULSE 96; RESP 16; TEMP 36.6; O2SAT 99
== END 2023-02-01 22:00 | disposition left against medical advice (07) ==
PROVIDERS: PCP Family Medicine Adolescent Medicine
DX: R10.30 Lower abdominal pain, unspecified (principal)
CPT/HCPCS: 99199

== ENCOUNTER 2023-02-05 13:33 | Emergency (ER) | payer OTHER, SELFPAY ==
[2023-02-05] VITALS (13 sets, daily range): BP systolic 108–154; BP diastolic 77–104; PULSE 75–99; RESP 13–20; TEMP 36.2–36.7; O2SAT 96–100
--- NOTE | ~2023-02-05 | US_ITS ---
EXAMINATION: US right upper quadrant DATE: 02/05/2023 15:01 INDICATION: Right upper quadrant abdominal pain TECHNIQUE: Multiple grayscale and Doppler ultrasound images of the abdomen were obtained. COMPARISON: CT dated 10/17/2021 FINDINGS: The pancreatic head and body are normal in appearance. The pancreatic tail is not visualized. Visual ized proximal to mid inferior vena cava is normal. Liver has normal echogenicity and contour, with a smooth surface. No liver lesion identified. No intrahepatic biliary duct dilation suspected. Portal v enous flow was seen in the hepatopetal, normal direction and has normal Doppler waveform. Oligo shado w complex with gallbladder collapsed around multiple echogenic and shadowing internal gallstones. Com mon bile duct measures 4 mm maximal diameter which is within normal limits. Sonographic Simmons sign w as reported as negative by the disaster director. IMPRESSION: 1. Cholelithiasis without findings to suggest either acute cholecystitis or biliary obstruction. Reviewed, dictated and finalized at location L. IMPRESSION: 1. Cholelithiasis without findings to suggest either acute cholecystitis or gonzalo iary obstruction.
[2023-02-05 14:02] LABS: Basophils Absolute Auto 0.1 K/mm3 (0.0-0.1); Basophils Percent Auto 0.7 % (0.2-1.2); Eosinophils Absolute Auto 0.1 K/mm3 (0-0.3); Eosinophils Percent Auto 0.7 % (0-4.4); Hemoglobin 15.4 g/dL (12.0-15.0); Immature Granulocyte Absolute 0.02 K/mm3 (0.00-0.031); Immature Granulocyte Percent A 0.2 % (0-0.5); Lymphocytes Absolute Auto 2.38 K/mm3 (0.9-3.2); Lymphocytes Percent Auto 25.8 % (18.3-44.2); Mean Corpuscular HGB Conc 32.8 g/dl (32-36); Mean Corpuscular Hemoglobin 29.2 pg (26-34); Mean Corpuscular Volume 89.2 fl (80-100); Mean Platelet Volume 10.2 fl (7.4-10.4); Monocytes Absolute Auto 0.6 K/mm3 (0.1-0.6); Monocytes Percent Auto 6.7 % (2.6-8.5); Neutrophils Absolute Auto 6.1 K/mm3 (1.3-6.7); Neutrophils Percent Auto 65.9 % (45.5-73.1); Platelet Count Result 304 k/mm3 (150-375); Red Blood Count 5.27 M/mm3 (4.2-5.4); Red Cell Distribution Width 17.2 % (11.5-14.5); White Blood Count 9.2 K/mm3 (4.5-10.0)
--- NOTE | 2023-02-05 14:10 | ED.ABDPAIN ---
HPI - Abdominal Pain General Chief Complaint: Abdominal Pain Stated Complaint: abdominal pain Time Seen by Provider: 02/05/23 13:50 History of Present Illness HPI narrative: Pt presents with RUQ pain intermittently for weeks but persistent since last night and getting worse. Pt denies fever or vomiting. Pt has had diarrhea off and on. Related Data Home Medications Medication Instructions Recorded Confirmed norethindrone acetate 5 mg tablet mg 04/10/20 04/27/22 ferrous sulfate 325 mg (65 mg 325 mg PO DAILY 08/11/21 04/27/22 iron) tablet (Feosol) vitamin B complex (B 1 tablet PO DAILY 08/11/21 04/27/22 Complex-Vitamin B12 tablet) Allergies Allergy/AdvReac Type Severity Reaction Status Date / Time diclofenac AdvReac leg pain Verified 02/05/23 14:07 gabapentin AdvReac Dizziness Verified 02/05/23 14:07 meloxicam AdvReac Joint Pain Verified 02/05/23 14:07 sulfamethoxazole AdvReac Headache Verified 02/05/23 14:07 [From Septra] trimethoprim [From Septra] AdvReac Headache Verified 02/05/23 14:07 Review of Systems Review of Systems: All systems reviewed & are unremarkable except as noted in HPI and below PMFSH Past Medical History Medical History Chronic low back pain Obesity Overactive bladder Umbilical hernia Surgical History Surgical History History of colonoscopy History of esophagogastroduodenoscopy (EGD) History of tubal ligation Family History Family History Father Diabetes mellitus Hypertension Cerebrovascular accident Grandparent Carcinoma of colon Family history of malignant neoplasm Father Acute myocardial infarction Colon polyp Family history of gout Mother Depression Other Family history of arthritis Social History Social History Smoking packs per day: 1.2 Smoking cigarettes per day: 24.0 Years smoked: 20 Smoking pack-years: 24.00 Smoking status: Current every day smoker Tobacco type: cigarettes Alcohol intake: former Substance use: never Substance use type: does not use Living arrangements: with family Occupation/Education: occupation 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 Gender identity (if verbalized by the patient): Female Sexual Orientation (if Verbalized by the Patient): Straight or Heterosexual Spiritual care concerns: No Agree to blood products: Yes Exam Const: General: healthy appearing Nutritional Appearance: well nourished Orientation/consciousness: patient oriented x3 Limitations: no limitations Eyes: EOM: EOMs intact bilaterally Chest: Chest palpation & inspection: normal inspection of the chest Resp: Effort & Inspection: normal respiratory effort Auscultation: clear to auscultation bilaterally Cardio: Rate: regular rate Rhythm: regular rhythm GI: GI Palp: Yes Soft to palpation and Yes Tenderness to palpation present (GI) (ruq) Auscultation: normal bowel sounds Skin: General skin exam: normal color Rashes: no rashes Neuro: General: patient oriented x3, moves all extremities, no focal motor deficits and CN's II-XI intact bilaterally Cranial nerves: Yes Nystagmus not present Speech: normal speech Extrem: General: normal to inspection and no clubbing, cyanosis or edema Psych: Mental Status: mental status grossly normal Affect: normal affect Attitude: cooperative Course Vital Signs Vital signs: Vital Signs Temperature 97.2 F L 02/05/23 13:35 Pulse Rate 99 02/05/23 13:35 Respiratory Rate 20 02/05/23 13:35 Blood Pressure 146/99 H 02/05/23 13:35 Pulse Oximetry 100 02/05/23 13:35 Oxygen Delivery Room Air 02/05/23 13:35 Temperature 98.0 F 02/05/23 15:45 Pulse Rate 75 02/05/23 15:45 Respiratory Rate 16 02/05/23 15:45 Blood Pressure 124/8
[2023-02-05 14:11] LABS: Alanine Aminotransferase 18 U/L (6-35); Albumin Level 4.6 g/dL (3.5-5.1); Alkaline Phosphatase 51 U/L (38-126); Anion Gap 7 mmol/L (8-16); Aspartate Amino Transferase 22 U/L (14-36); Bilirubin,Total 0.5 mg/dL (0.2-1.3); Blood Urea Nitrogen 19 mg/dL (7-17); Calcium 9.2 mg/dL (8.4-10.2); Carbon Dioxide 19 mmol/L (22-30); Chloride 111 mmol/L (98-107); Estimated CRCL calculation 87 ml/min; Estimated Glomerular Filt Rate > 60; Glucose 93 mg/dL (65-110); Lipase 148 U/L (23-300); Potassium 3.8 mmol/L (3.4-5.0); Sodium 137 mmol/L (137-145)
[2023-02-05 14:15] LABS: Appearance Urine Cloudy (Clear); Bacteria Urine Rare /hpf; Bilirubin Urine Negative (Negative); Blood Urine Negative (Negative); Color Urine Dark Yellow (Yellow); Glucose Urine UA Negative (Negative); Ketones Urine Trace mg/dL (Negative); Leukocyte Esterase Ur Trace LEU/UL (Negative); Need Manual Microscopic Reviewed; Nitrate Urine Negative (Negative); Protein Urine Trace mg/dL (Negative); Squamous Epithelial Cell Urine Few /hpf (Few); WBC Urine 0-5 /hpf; pH Urine 5.5 (5.0-9.0)
[2023-02-05 14:16] LABS: Add Urine Microscopic? YES
[2023-02-05] MEDS: SODIUM CHLORIDE 0.9% IV 1,000 ML 999 ML IV CONT (14:47)
[2023-02-05] MEDS: ONDANSETRON INJ 4 MG/2 ML VIAL IV PUSH (14:47)
[2023-02-05] MEDS: fentaNYL CITRATE INJ (*CRX) 100 MCG/2 ML VIAL 50 MCG IV PUSH (14:47)
[2023-02-05 15:22] LABS: Partial Thromboplastin Time 30.5 SECONDS (22.3-36.8)
== END 2023-02-05 15:56 | disposition home or self-care (01) ==
PROVIDERS: Emergency Medicine; Emergency Provider Emergency Medicine; PCP Family Medicine Adolescent Medicine
DX: K80.20 Calculus of gallbladder without cholecystitis without obstruction (principal); F17.210 Nicotine dependence, cigarettes, uncomplicated
CPT/HCPCS: 36415; 76705; 80053; 81001; 81025; 83690; 85025; 85610; 85730; 96361; 96374; 96375; 99284; J2405; J3010; J7030

== ENCOUNTER 2023-02-07 21:25 | Emergency (ER) | payer OTHER, SELFPAY ==
--- NOTE | ~2023-02-07 | XR_ITS ---
EXAMINATION: XR chest 2V DATE: 02/07/2023 22:18 INDICATION: Chest pain TECHNIQUE: PA and lateral views of the chest are obtained. COMPARISON: 04/16/2022 FINDINGS: The lungs are free of acute opacities. No pleural effusion or pneumothorax. The heart size is normal. There is a moderate size hiatal hernia. There is mild thoracic spondylosis. IMPRESSION: 1. No acute cardiopulmonary abnormality. Reviewed, dictated and finalized at location F.
--- NOTE | ~2023-02-07 | CT_ITS ---
CT of the Abdomen and Pelvis: Indication: Abdominal pain Technique: 2.5 mm axial scans were obtained through the abdomen and pelvis following intravenous adm inistration of 100 cc of Omnipaque 350. Dose reduction technique was used on this scan by utilizing a utomated exposure control and iterative reconstruction technique. The dose-length product (DLP) was 1 035.55 mGy-cm. COMPARISON: 10/17/2021 Findings: Scans through the lung bases demonstrate moderate hiatal hernia. The liver, spleen, pancreas, adrenals and kidneys are within normal limits. Small gallstones are pres ent. Possible minimal gallbladder wall thickening. No evidence of aortic aneurysm. No lymphadenopath y. No bowel obstruction or bowel wall thickening. There is no evidence to suggest acute appendicitis. Sm all fat-containing umbilical hernia noted. Images through the pelvis were performed. Urinary bladder unremarkable. No adnexal mass seen. No asci christian. Impression: Cholelithiasis. Possible mild gallbladder wall thickening, which could be related to contracted state versus acute cholecystitis. Correlate clinically. Consider HIDA scan as indicated. Moderate hiatal hernia. Small fat-containing umbilical hernia. Reviewed, dictated and finalized at location . Impression: Cholelithiasis. Possible mild gallbladder wall thickening, which could be relat ed to contracted state versus acute cholecystitis. Correlate clinically. Consid er HIDA scan as indicated. Moderate hiatal hernia. Small fat-containing umbilical hernia.
[2023-02-07 21:26] VITALS: BP 135/80; PULSE 98; RESP 18; TEMP 36.6; O2SAT 100
--- NOTE | 2023-02-07 21:30 | ECG_ITS ---
Measurements Intervals [place] Rate: 88 P: 64 CT: 150 QRS: 37 QRSD: 85 T: 46 QT: 351 QTc: 426 Interpretive Statements SINUS RHYTHM NORMAL ELECTROCARDIOGRAM COMPARED TO ECG 04/16/2022 06:47:52 NO SIGNIFICANT CHANGES Electronically Signed On 02-08-2023 12:57:16 CDT by Jesus Manuel Rosario M.D.
[2023-02-07 21:59] LABS: Basophils Absolute Auto 0.1 K/mm3 (0.0-0.1); Basophils Percent Auto 0.7 % (0.2-1.2); Eosinophils Absolute Auto 0.1 K/mm3 (0-0.3); Eosinophils Percent Auto 1.3 % (0-4.4); Hematocrit 43.7 % (37.0-47.0); Hemoglobin 14.2 g/dL (12.0-15.0); Immature Granulocyte Absolute 0.01 K/mm3 (0.00-0.031); Immature Granulocyte Percent A 0.1 % (0-0.5); Lymphocytes Absolute Auto 2.56 K/mm3 (0.9-3.2); Lymphocytes Percent Auto 34.3 % (18.3-44.2); Mean Corpuscular HGB Conc 32.5 g/dl (32-36); Mean Corpuscular Hemoglobin 29.4 pg (26-34); Mean Corpuscular Volume 90.5 fl (80-100); Mean Platelet Volume 10.9 fl (7.4-10.4); Monocytes Absolute Auto 0.5 K/mm3 (0.1-0.6); Monocytes Percent Auto 6.6 % (2.6-8.5); Neutrophils Absolute Auto 4.3 K/mm3 (1.3-6.7); Platelet Count Result 244 k/mm3 (150-375); Red Blood Count 4.83 M/mm3 (4.2-5.4); Red Cell Distribution Width 16.8 % (11.5-14.5); White Blood Count 7.5 K/mm3 (4.5-10.0)
[2023-02-07 22:04] LABS: Alanine Aminotransferase 17 U/L (6-35); Alkaline Phosphatase 46 U/L (38-126); Anion Gap 6 mmol/L (8-16); Aspartate Amino Transferase 21 U/L (14-36); Bilirubin,Total 0.3 mg/dL (0.2-1.3); Blood Urea Nitrogen 18 mg/dL (7-17); Carbon Dioxide 19 mmol/L (22-30); Chloride 111 mmol/L (98-107); Estimated CRCL calculation 87 ml/min; Estimated Glomerular Filt Rate > 60; Glucose 103 mg/dL (65-110); Lipase 151 U/L (23-300); Potassium 4.1 mmol/L (3.4-5.0); Sodium 136 mmol/L (137-145)
[2023-02-07 22:12] LABS: Prothrombin Time 13.5 Seconds (11.1-14.7)
[2023-02-07 22:15] LABS: Troponin I < 0.012 ng/mL (0.000-0.034)
[2023-02-07 23:44] VITALS: BP 142/88; PULSE 78; RESP 15; TEMP 36.4; O2SAT 100
[2023-02-08] VITALS (10 sets, daily range): BP systolic 116–149; BP diastolic 56–94; PULSE 69–84; RESP 13–18; TEMP 37.1; O2SAT 98–100
--- NOTE | 2023-02-08 00:25 | PC.NURSE ---
pharm called for LR
[2023-02-08] MEDS: KETOROLAC 30 MG/ML VIAL (*BKC) IV PUSH (00:31)
[2023-02-08] MEDS: ONDANSETRON INJ 4 MG/2 ML VIAL IV PUSH (00:32)
--- NOTE | 2023-02-08 00:41 | PC.NURSE ---
pt sts that she was here on Saturday for abd pain. pt was told that she has gall stones. pt sts absd pain that radiates to her back. pt sts that she is dizzy,and is in a lot of pain. pt has orange fingers from smoking. pt has missing teeth and is disheveled. pt sts that she is on control and has a tubal. pt is axox4, abc are wnl nad. airway is negative. iv established and labs and urine sent
[2023-02-08 00:59] LABS: Appearance Urine Cloudy (Clear); Bacteria Urine 4+ /hpf; Bilirubin Urine Negative (Negative); Color Urine Dark Yellow (Yellow); Glucose Urine UA Negative (Negative); Ketones Urine 1+ mg/dL (Negative); Leukocyte Esterase Ur 1+ LEU/UL (Negative); Mucus Urine Present /lpf; Nitrate Urine Negative (Negative); Protein Urine Trace mg/dL (Negative); Squamous Epithelial Cell Urine Many /hpf (Few); WBC Urine 51-100 /hpf
[2023-02-08 01:00] LABS: Add Urine Microscopic? YES
[2023-02-08 01:06] LABS: Troponin I 0.018 ng/mL (0.000-0.034)
[2023-02-08] MEDS: LACTATED RINGERS 1,000 ML 999 ML IV CONT (01:10)
[2023-02-08] MEDS: FAMOTIDINE 20 MG/2 ML VIAL IV PUSH (01:10)
--- NOTE | 2023-02-08 04:20 | ED.CHESTPAIN ---
HPI - Chest Pain General Chief Complaint: Chest Pain Stated Complaint: chest and back pain Time Seen by Provider: 02/08/23 00:07 Source: patient Mode of arrival: ambulatory Limitations: no limitations History of Present Illness HPI narrative: 47-year-old female represents today with complaints of upper abdominal and chest pain. She was seen here on Saturday where gallstones were found. Patient states that the pain has not improved since she was here. Denies eating any high fatty or spicy foods. States she has only been eating crackers and water since she was discharged. Denies any vomiting but does feel nauseated. States she felt lightheaded today. Denies fevers, body aches, chills, or sick contacts. Related Data Home Medications Medication Instructions Recorded Confirmed norethindrone acetate 5 mg tablet mg 04/10/20 04/27/22 ferrous sulfate 325 mg (65 mg 325 mg PO DAILY 08/11/21 04/27/22 iron) tablet (Feosol) vitamin B complex (B 1 tablet PO DAILY 08/11/21 04/27/22 Complex-Vitamin B12 tablet) Allergies Allergy/AdvReac Type Severity Reaction Status Date / Time diclofenac AdvReac leg pain Verified 02/05/23 14:07 gabapentin AdvReac Dizziness Verified 02/05/23 14:07 meloxicam AdvReac Joint Pain Verified 02/05/23 14:07 sulfamethoxazole AdvReac Headache Verified 02/05/23 14:07 [From Marra] trimethoprim [From ] AdvReac Headache Verified 02/05/23 14:07 Review of Systems Review of Systems: All systems reviewed & are unremarkable except as noted in HPI and below PMFSH Past Medical History Medical History Chronic low back pain Obesity Overactive bladder Umbilical hernia Surgical History Surgical History History of colonoscopy History of esophagogastroduodenoscopy (EGD) History of tubal ligation Family History Family History Father Diabetes mellitus Hypertension Cerebrovascular accident Grandparent Carcinoma of colon Family history of malignant neoplasm Father Acute myocardial infarction Colon polyp Family history of gout Mother Depression Other Family history of arthritis Social History Social History Smoking packs per day: 1.2 Smoking cigarettes per day: 24.0 Years smoked: 20 Smoking pack-years: 24.00 Smoking status: Current every day smoker Tobacco type: cigarettes Alcohol intake: former Substance use: never Substance use type: does not use Living arrangements: with family Occupation/Education: occupation 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 Gender identity (if verbalized by the patient): Female Sexual Orientation (if Verbalized by the Patient): Straight or Heterosexual Spiritual care concerns: No Agree to blood products: Yes Exam Const: General: cooperative, healthy appearing, comfortable, no acute distress and well developed Orientation/consciousness: patient oriented x3 HENMT: Head: normal to inspection Eyes: General: appearance normal, both eyes and all related structures Resp: Effort & Inspection: normal respiratory effort and able to speak in complete sentences Auscultation: clear to auscultation bilaterally Cardio: Rate: regular rate Rhythm: regular rhythm Heart sounds: S1 normal heart sound present and S2 normal heart sound present GI: GI Palp: Yes Soft to palpation and No Tenderness to palpation present (GI) Auscultation: normal bowel sounds Neuro: General: patient oriented x3 Course Course Emergency Course: Patient with improvement after IV fluids, Pepcid, Zofran, Toradol. Labs without concerning findings at this time. Previous ultrasound reviewed. CT of the abdomen ordered and awaiting results. [address] Altman and patient care handed over. Vital Sign
[2023-02-08 06:10] LABS: Troponin I < 0.012 ng/mL (0.000-0.034)
== END 2023-02-08 06:32 | disposition home or self-care (01) ==
PROVIDERS: Nurse Practitioner Family; Emergency Provider Emergency Medicine; PCP Family Medicine Adolescent Medicine
DX: R07.89 Other chest pain (principal); K80.50 Calculus of bile duct without cholangitis or cholecystitis without obstruction; N39.0 Urinary tract infection, site not specified; E66.9 Obesity, unspecified; Z68.41 Body mass index [BMI] 40.0-44.9, adult; F17.210 Nicotine dependence, cigarettes, uncomplicated
CPT/HCPCS: 36415; 71046; 74177; 80053; 81001; 83690; 84484; 85025; 85610; 85730; 87086; 87088; 93005; 96361; 96374; 96375; 99284; J1885; J2405; J7120; Q9967

== ENCOUNTER 2023-02-19 15:49 | Outpatient (CLI) | payer OTHER, SELFPAY ==
[2023-02-19 17:31] LABS: Amylase 57 U/L (30-110)
== END 2023-02-19 15:50 | disposition home or self-care (01) ==
LOC: ANHLAB 15:50
PROVIDERS: PCP Family Medicine Adolescent Medicine; Visit Provider Surgery
DX: K80.20 Calculus of gallbladder without cholecystitis without obstruction (principal); Z01.818 Encounter for other preprocedural examination
CPT/HCPCS: 36415; 82150; 86850; 86900; 86901

== ENCOUNTER 2023-02-21 00:50 | Day surgery (SDC) | payer OTHER, SELFPAY ==
[2023-02-19 09:48] VITALS: BMI 38.9
--- NOTE | 2023-02-19 09:57 | PC.NURSE ---
PRE-OP INSTRUCTIONS, PLEASE READ CAREFULLY Report to the Outpatient Waiting Room, entrance under the green pavilion located off [facility], at time _0815_ on date _02/21/23_. Planned Procedure Time: _1015_. Time changes happen often and if your time is changed the preop area will call you the afternoon before. - You and your visitor will be asked to self-screen and do not enter if you have any COVID symptoms. - A mask is optional within the hospital at this time. Patients may have clear liquids (water, carbonated beverages, clear teas, apple juice) until 3 hours prior to surgery (0715 AM) with a maximum of 20 ounces. - No food from midnight until time of surgery Take the following medications with a SIP of water the morning of surgery: _PAIN MED_ DO NOT STOP ANY OF YOUR OTHER PRESCRIPTION MEDICATIONS PRIOR TO SURGERY ?EXCEPT THE FOLLOWING Medications to discontinue per physician _NONE_, Date to take last dose Please no make-up, nail indonesian, hairspray, perfume, deodorant, or body powder the day of surgery. No jewelry (including any body piercings) or valuables the day of surgery, leave them at home. Please take a shower or bath the night before, or the morning of, surgery with an antibacterial soap. Wear comfortable, loose fitting clothing. - Jewelry must be removed prior to entering the operating room. Rings and piercings that are not removed may be cut off. - The hospital will not accept responsibility for valuables. - Please leave all valuables, including medications, at home the day of surgery. If you are going home after surgery, a licensed batch mixing truck driver must drive you home. - NO public transportation without another adult if you receive anesthesia. - We recommend that an adult stay with you for 24 hours following discharge. - We also recommend that you do not drive, make important decision, drink alcoholic beverages, or take any drugs that were not prescribed by your health care provider for at least 24 hours after your discharge time. Follow any additional instructions given to you from your surgeon. If you or anyone in your household have experienced Covid symptoms in the past week, please notify your surgeon or the nurse liaison at the phone number below for possible testing. Telephone instructions given to _PATIENT__and asked if any additional questions and then verbalized understanding. Patient advised to call surgeon office or pre surgery nurse liaison [phone] if any additional questions.
[2023-02-21] VITALS (9 sets, daily range): BP systolic 104–132; BP diastolic 52–111; PULSE 66–77; RESP 12–16; TEMP 36.1–36.4; O2SAT 97–100
[2023-02-21] MEDS: LACTATED RINGERS 1,000 ML 30 ML IV CONT (08:35)
[2023-02-21] MEDS: INDOCYANINE GREEN 25 MG VIAL WITH DILUENT 3.75 MG IV PUSH (08:40)
--- NOTE | 2023-02-21 08:44 | WPDANESEPPF ---
Anes - Initial Pre Proc Eval Procedure: Operation Date: 02/21/23 10:15 Proposed Procedures p Laparoscopic Cholecystectomy, Davinci Assisted - Aiden Jarrell DO Date/Time: 02/21/23 08:44 Surgeon: Aiden Jarrell DO Pre Op Diagnosis: symptomatic cholelithiasis Patient Data Age: 47 Gender: F Height: 1.52 m Weight: 90.45 kg Allergies Allergy/AdvReac Type Severity Reaction Status Date / Time No Known Allergies Allergy Verified 02/21/23 08:22 Home Medications Medication Instructions Recorded Confirmed Type norethindrone acetate 5 mg tablet 5 mg DAILY 04/10/20 02/20/23 History ferrous sulfate 325 mg (65 mg 325 mg PO DAILY 08/11/21 02/20/23 History iron) tablet (Feosol) albuterol sulfate 90 mcg/actuation 2 inh inhalation QID PRN shortness 08/19/22 02/20/23 Rx aerosol inhaler of breath or wheezing #25.5 grams omeprazole 20 mg capsule,delayed 20 mg PO BID #180 caps 08/24/22 02/20/23 Rx release cyclobenzaprine 10 mg tablet 10 mg PO TID PRN muscle spasm #30 10/01/22 02/20/23 Rx tabs promethazine 25 mg tablet 25 mg PO QID PRN nausea and 12/13/22 02/20/23 Rx vomiting #20 tabs hydrocodone 5 mg-acetaminophen 325 1 tablet PO Q4H PRN pain #14 tabs 02/05/23 02/20/23 Rx mg tablet ondansetron 4 mg disintegrating 4 mg PO Q8H PRN nausea and 02/05/23 02/20/23 Rx tablet vomiting #14 tabs tramadol 50 mg tablet See Rx Instructions PO Q6H PRN 02/18/23 02/20/23 Rx pain #120 tabs dicyclomine 10 mg capsule 10 mg PO TID PRN Diarrhea 02/19/23 02/20/23 History indomethacin 50 mg capsule 50 mg PO BID PRN pain 02/19/23 02/20/23 History Patient hx anesthesia problems: none Family hx anesthesia problems: none Results Review: All pre-operative results and documents have been reviewed as part of the pre-operative evaluation. [facility] Past Medical History Medical History Chronic low back pain Obesity Overactive bladder Umbilical hernia Surgical History Surgical History History of colonoscopy History of esophagogastroduodenoscopy (EGD) History of tubal ligation Family History Family History Father Diabetes mellitus Hypertension Cerebrovascular accident Grandparent Carcinoma of colon Family history of malignant neoplasm Father Acute myocardial infarction Colon polyp Family history of gout Mother Depression Other Family history of arthritis Social History Social History Smoking packs per day: 1 Smoking cigarettes per day: 20.0 Years smoked: 25 Smoking pack-years: 25.00 Smoking status: Current every day smoker Tobacco type: cigarettes Second hand tobacco smoke exposure: No Alcohol intake: current Drinks per week: 1 Alcohol use details: occasional alcohol use Substance use: never Substance use type: does not use Living arrangements: with family Additional living arrangements comments: LIVES WITH CHILDEREN Occupation/Education: occupation 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 Gender identity (if verbalized by the patient): Female Sexual Orientation (if Verbalized by the Patient): Straight or Heterosexual Spiritual care concerns: No Agree to blood products: Yes Anes - Eval Final PreProcedure Day of Procedure 02/21/23 08:44 Patient weight: obese Heart: regular rate and rhythm Lungs: decreased breath sounds Airway: Mallampati scale class II Neurological: alert and oriented Last oral intake: >/= 8 hours ASA classification: III Emergent: no Anesthetic plan: proceed Anesthesia type and monitoring: general ETT and standard monitoring Results Review: All pre-operative results and documents have been reviewed as part of the pre-operative evaluation. Informed Consent: The patient'
[2023-02-21] MEDS: ACETAMINOPHEN 500 MG TABLET 1000 MG PO (08:50)
--- NOTE | 2023-02-21 09:22 | SUR.PREOP ---
0915- SPOKE WITH DR. SRIVASTAVA ABOUT 2 SMALL OPEN SORE ON UPPER ABD AND A SMALL SCRATCH. SORE ARE OPEN. PT STATED FROM CAT. DR. SRIVASTAVA STATED HE WILL LOOK AT IN PRE OP.
[2023-02-21] MEDS: KETOROLAC 15 MG/ML VIAL (*BKC) IV PUSH (09:46)
--- NOTE | 2023-02-21 09:49 | WPDHPUPDATE1 ---
History and Physical Update Update Date/Time: 02/21/23 09:49 History and Physical has been reviewed, including an updated exam of the patient. There are NO changes in the patient's condition. Risks, benefits, and alternatives have been discussed and questions answered. Patient agrees to proceed with procedure.
[2023-02-21] MEDS: ceFAZolin 2 GM/D5W 50 ML 2 GM/50 ML BAG IVPB (10:26)
[2023-02-21] MEDS: BUPIVACAINE/EPINEPHRINE 0.25% 10 ML VIAL 30 ML INFILTRATE (10:51)
--- NOTE | 2023-02-21 12:02 | W.PM.PROC2 ---
Procedure Note - Detailed Date of Procedure 02/21/23 Pre-op Diagnosis symptomatic cholelithiasis Post-op Diagnosis Same Procedure Performed 1. Laparoscopic cholecystectomy with cholangiography, da Dina assisted 2. Interpretation of cholangiography Surgeon Aiden Jarrell DO Anesthesia General and Local (0.5% bupivacaine) Indications This is a 47-year-old woman who presented with intermittent upper abdominal pain over past year. She has been to the emergency department twice within the last 3 weeks with worsening abdominal pain. She initially had a gallbladder ultrasound which showed evidence of cholelithiasis and then the 2nd time she went to the emergency department she had a CT which showed evidence of cholelithiasis and gallbladder wall thickening. She then presented to the office for follow-up and further discussion was made with the patient about treatment options. Decision made to proceed with robotic assisted laparoscopic cholecystectomy. Findings Robotic assisted laparoscopic cholecystectomy was performed. The gallbladder had chronic gallbladder wall thickening and multiple small and medium-sized gallstones. The cystic duct was somewhat dilated and had some induration. Indocyanine green was used with near infrared fluorescent imaging to adequately visualize the cystic duct and common bile duct. No other aberrant anatomy was identified. The gallbladder was removed and sent to the lab for pathology. Description of Procedure Procedure as well as risks, benefits, and alternatives were discussed with the patient. Written consent was obtained and placed in chart prior to procedure. 1.5 mL of indocyanine green was given intravenously in preop. Patient was brought back to surgical suite. She was placed supine on operating table. Time-out was done to confirm patient and procedure. She was then intubated by the anesthesia department. Her abdomen was then prepped and draped in sterile fashion using chlorhexidine prep. 0.5% bupivacaine was infiltrated locally at the site of each port placement. An 8 mm incision was made just superior to the umbilicus and a 5 mm Optiview trocar was then advanced through the abdominal layers under direct visualization. Once inside the abdominal cavity, carbon dioxide insufflation was used to create a pneumoperitoneum. The camera was inserted and the abdomen was inspected. No mediated abnormalities were noted. The patient was placed in 10? reverse Trendelenburg position and rotated 10? to the left. Two 8 mm incisions were made in the right lateral abdomen and 2 8 mm trocars were inserted under direct visualization. An 8 mm incision was made in the left lateral abdomen and an 8 mm trocar was inserted under direct visualization. The 5 mm Optiview trocar was then removed and another 8 mm trocar was inserted in its place. The robotic arms were then brought up to the patient's bedside and secured to each port. The camera and instruments were inserted. I then moved over to the robotic consult to take control of the camera and instruments. The gallbladder was grasped at the fundus and retracted cephalad. The infundibulum of the gallbladder was then grasped and retracted laterally. Hook electrocautery was then used to carefully dissect around the neck of the gallbladder. The cystic duct was identified and a window was created around it using hook electrocautery. The cystic artery was also identified and a window was created behind it using hook electrocautery. Critical view of safety was identified visualizing the cystic duct running directly into the neck of the gallbladder and the cystic artery running directly into the wall the gallbladder. The camera view was switched to firefly mode and the indocyanine green within the gallbladder and cystic duct was clearly visualized. No other structures were noted running into this region and there did not appear to be any obstruction of the cystic duct impeding flow of bile in
[2023-02-21] MEDS: fentaNYL CITRATE INJ (*CRX) 100 MCG/2 ML VIAL 25 MCG IV PUSH ×8 (12:19→12:51)
[2023-02-21] MEDS: oxyCODONE HCL (*CRX) 5 MG TAB IR PO (13:10)
== END 2023-02-21 13:59 | disposition home or self-care (01) ==
PROVIDERS: PCP Family Medicine Adolescent Medicine; Visit Provider Surgery
PROC: 0FT44ZZ Resection of Gallbladder, Percutaneous Endoscopic Approach (ICD-10-PCS; CPT 47562; principal; 2023-02-21 10:15)
DX: K80.10 Calculus of gallbladder with chronic cholecystitis without obstruction (principal); F17.210 Nicotine dependence, cigarettes, uncomplicated; Z79.51 Long term (current) use of inhaled steroids; Z79.891 Long term (current) use of opiate analgesic; E66.9 Obesity, unspecified; Z68.38 Body mass index [BMI] 38.0-38.9, adult
CPT/HCPCS: 47563; 74300; S2900; 36415; 82150; 86850; 86900; 86901; 88304; A9270; J0690; J1100; J1885; J2250; J2405; J2704; J3010; J7120

== ENCOUNTER 2023-09-30 12:01 | Emergency (ER) | payer OTHER, SELFPAY ==
[2023-09-30 12:15] VITALS: BP 156/85; PULSE 98; RESP 22; TEMP 36.2; O2SAT 98
--- NOTE | 2023-09-30 13:04 | ED.URI ---
HPI - URI/Sore Throat General Chief Complaint: Upper Respiratory Infection Stated Complaint: Sinus Time Seen by Provider: 09/30/23 13:05 Source: patient and RN notes reviewed Mode of arrival: ambulatory Limitations: no limitations History of Present Illness HPI Narrative: 48-year-old female with history of COPD presents with concern for 2 week history of nasal congestion, sinus drainage, cough, chest congestion. Reports she is using inhaler more than usual she denies fever, sweats, aches, chills. Reports she has been using her albuterol more often than usual. MD elicited complaint: cough and nasal congestion Related Data Home Medications Medication Instructions Recorded Confirmed norethindrone acetate 5 mg tablet 5 mg DAILY 04/10/20 09/30/23 ferrous sulfate 325 mg (65 mg 325 mg PO DAILY 08/11/21 09/30/23 iron) tablet (Feosol) dicyclomine 10 mg capsule 10 mg PO TID PRN Diarrhea 02/19/23 09/30/23 Allergies Allergy/AdvReac Type Severity Reaction Status Date / Time No Known Allergies Allergy Verified 04/08/23 10:54 Review of Systems Review of Systems: CONSTITUTIONAL: Denies malaise, chills, sweats, or fever. EYES: Denies visual changes, redness, or discharge. ENT: Reports rhinorrhea, congestion, sinus pain CARDIOVASCULAR: Denies chest pain, palpitations, or edema. RESPIRATORY: Reports cough. Denies dyspnea. GASTROINTESTINAL: Denies abdominal pain, nausea, vomiting, diarrhea SKIN: Denies rash or itching. MUSCULOSKELETAL: Denies myalgia. NEUROLOGIC: Denies headache. All systems reviewed & are unremarkable except as noted in HPI and below PMFSH Past Medical History Medical History Chronic low back pain Obesity Overactive bladder Umbilical hernia Surgical History Surgical History History of cholecystectomy (02/2023) History of colonoscopy History of esophagogastroduodenoscopy (EGD) History of tubal ligation Family History Family History Father Diabetes mellitus Hypertension Cerebrovascular accident Grandparent Carcinoma of colon Family history of malignant neoplasm Father Acute myocardial infarction Colon polyp Family history of gout Mother Depression Other Family history of arthritis Social History Social History Smoking packs per day: 1 Smoking cigarettes per day: 20.0 Years smoked: 25 Smoking pack-years: 25.00 Smoking status: Current every day smoker Tobacco type: cigarettes Second hand tobacco smoke exposure: No Alcohol intake: current Drinks per week: 1 Alcohol use details: occasional alcohol use Substance use: never Substance use type: does not use Living arrangements: with family Additional living arrangements comments: LIVES WITH CHILDEREN Occupation/Education: occupation 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 There is no relevant family history pertinent to the presenting complaint Exam Narrative: GENERAL: Well-appearing, well-nourished, and in no acute distress. HEAD: Normocephalic EYES: PERRLA, conjunctivae clear ENT: Nares clear, turbinates edematous and erythematous, sinus can is. Mucous membranes moist. TM pearly childress with dull light reflex bilaterally; no tragal tenderness. Oropharynx not erythematous without lesions. Tonsils not enlarged and without exudate, no drooling, no hoarseness, no trismus, uvula midline. NECK: Supple. No lymphadenopathy CHEST: Expiratory wheeze throughout, breath sounds e
== END 2023-09-30 13:18 | disposition home or self-care (01) ==
PROVIDERS: Emergency Provider Nurse Practitioner; PCP Family Medicine Adolescent Medicine
DX: J32.9 Chronic sinusitis, unspecified (principal); J40 Bronchitis, not specified as acute or chronic; F17.210 Nicotine dependence, cigarettes, uncomplicated; E66.9 Obesity, unspecified; Z68.30 Body mass index [BMI] 30.0-30.9, adult
CPT/HCPCS: 99213; G0463

== ENCOUNTER 2024-11-25 14:18 | Outpatient (CLI) | payer MEDICAID, SELFPAY ==
--- NOTE | ~2024-11-25 | XR_ITS ---
EXAMINATION: XR chest 2V 11/25/2024 14:34 INDICATION: Dyspnea. Leg edema. PROCEDURE: 2 view chest COMPARISON: Comparison to multiple prior studies sequentially, with oldest reviewed study dated 10/2019. FINDINGS: The lungs are clear. The cardiomediastinal silhouette is within normal limits. There are no pleural effusions. There is no pneumothorax suspected. Large hiatal hernia. IMPRESSION: 1: NO ACUTE CARDIOPULMONARY DISEASE. Reviewed, dictated and finalized at location B.
--- OUTSIDE RECORDS SUMMARY | 2024-11-25 14:25 | XMS_ITS | Continuity of Care Document ---
Author Organization [facility] Address [address] [place] [address] Phone Care Team Providers Care Wildlife Ecologist Name Role Phone Drew Pizano MD Unavailable Unavailable Allergies, Adverse Reactions, Alerts Substance Reaction Status Criticality No Known Allergies Active No Inform ation Medications Medication Instructions Dosage Effective Dates (start - stop) Status Comments NORCO (unknown strength) Not Available - Active DICLOFENAC SODIUM (unknown strength) Not Available - Active MULTIVITAMINS (unknown strength) Not Available - Active CONZIP (unknown strength) Not Available - Active NEXIUM (unknown strength) Not Available - Active NORTHERA (unknown strength) Not Available - Active Procedures Procedure Date DISABILITY EXAMINATION DISABILITY EXAMINATION Advance Directives Directive Yes / No Effective Date File Name No Information Encounters Encounter Description Practice Location Reason(s) For Visit Diagnoses Date Provider Providers Copied on Encounter [facility], [address], [place], [address], [place] tel:[phone] [facility] No Information 6 Jerica Russell. [address], [place], [place], [id number] . tel: [phone] DISABILITY EXAMINATION [facility], [address], [place], [address], [place] tel:[phone] [facility] Right rotator cuff tendonitisRadicul opathy affecting upper extremity 6 Jerica Russell. [address], [place], [place], [id number] . tel: [phone] DISABILITY EXAMINATION [facility], [address], [place], [address], [place] tel:[phone] [facility] Cervical strainNeck pain Oct- 5-201 5 Jerica Russell. [address], [place], [place], [id number] . tel: [phone] Family History Family Member Type Diagnosis Age At Onset No Information Payers Payer name Insurance type Covered republican ID Authoriza tion(s) No Information Social History Type Description Quantity Date Captured Comments Sex Female Smoking Status No Information Chief Complaint And Reason For Visit No Information Reason For Referral Reason For Referral No Information History Of Present Illness Encounter Date Complaint History Of Prese nt Illness No Information Functional Status Date Functional Assessmen t No Information Instructions Date Instruction Additional Infor mation Discussed treatment options Rela itz to Radiculopathy affecting upper extremity Continue home exercise program. Related to Neck pain Assessments Type Assessment Date No Information Patient Care Teams Name Effective Dates (start - stop) Status Members No Information
--- OUTSIDE RECORDS SUMMARY | 2024-11-25 14:25 | XMS_ITS | Clinical Summary ---
Author Organization [facility] [employer] Address [address] [place] [address] Care Team Providers Care Bale Stacker Name Role Phone Esteban Anand MD Primary Care Provider + Source Comments [facility],non-[facility] Affiliates and Associated Physician Practices is amultiple site organization consisting of ambulatory clinics and hospital sitesin [place], [place], [place] and [place]. This disclosure is being madepursuant to the Care Everywhere program and may not contain all information available regarding this patient. Last updated 18.[facility] [employer] Allergies Active Allergy Reactions Criticality Noted Date Comments Meloxicam 05/23/2016 Medications * Be aware that medications may not be up to date on this document. Alwaysverify current medications with the patient. LORAZEPAM PO Active Hydrocodone-Acet aminophen (NORCO PO) Active OMEPRAZOLE PO Active OtherIndications : control Reasons: control Active albuterol HFA (PROVENTIL;HERMAN CALVIN;PROAIR) 108 (90 BASE) MCG/ACT inhalerIndicatio ns:Acute bronchitis, unspecified organism Inhale 2 puffs by mouth every 4 hours as needed for Wheezing 1 Inhaler 8 Active Cyclobenzaprine HCl (FLEXERIL PO) Active gabapentin (NEURONTIN) 300 MG capsule Take 300 mg by mouth 2 times daily Active Social History Tobacco Use Types Packs/Day Years Used Date Smoking Tobacco: Every Day Smokeless Tobacco: Never Tobacco Cessation:Ready to Q uit: No; Counseling Given: Yes Comments Unknown Sex and Gender Information Value Date Recorded Sex Assigned at Not on file 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 Gender Identity Not on file Sexual Orientation Not on file Last Filed Vital Signs Vital Sign Reading Time Taken Comments Blood Pressure 112/80 02/06/2019 8:59 AM CDT Pulse 78 02/06/2019 8:59 AM CDT Temperature 36.9 C (98.5 F) 02/06/2019 8:59 AM CDT Respiratory Rate 17 02/06/2019 8:59 AM CDT Oxygen Saturation 98% 02/06/2019 8:59 AM CDT Inhaled Oxygen Concentration - - Weight 87.1 kg (192 lb) 02/06/2019 8:59 AM CDT Height 152.4 cm (5') 02/06/2019 8:59 AM CDT Body Mass Index 37.5 02/06/2019 8:59 AM CDT Plan of Treatment Health Maintenance Due Date Last Done Comments COLOGUARD (AGES 45-75) - COL ON CA SCREENING 1975 COLON MONITORING 1975 COLONOSCOPY - COLON CA SCREENING 1975 CT COLONOGRAPHY - COLON CA SCREENING 1975 Colorectal Cancer Screening 1975 FIT - COLON CA SCREENING 1975 FLEX SIG - COLON CA SCREENING 1975 LIPID TESTING 1975 MAMMOGRAM 1975 PAP SMEAR 1975 HIV SCREENING 1990 HEPATITIS C SCREENING 02/17/1993 DTAP/TDAP/TD VACCINES (1 - Tdap) 1994 HEPATITIS B VACCINE (1 of 3 - 19+ 3-dose series) 1994 SCREENING FOR DIABETES 09/06/2017 COVID-19 VACCINE (1 - 2023-2 5 season) 2024 DEPRESSION SCREENING 07/08/2024 ZOSTER VACCINE (1 of 2) 2025 INFLUENZA VACCINE (Season Ended) 2025 HIB VACCINE Aged Out No longer eligi ble based on patient's age to complete this topic HPV VACCINE Aged Out No longer eligi ble based on patient's age to complete this topic MENINGOCOCCAL (Group B) VACC INE SHARED DECISION-MAKING Aged Out No longer eligibl e based on patient's age to complete this topic MENINGOCOCCAL GROUPS A/C/Y/W VACCINE Aged Out No longer eligible b ased on patient's age to complete this topic Insurance Care Teams Bale Stacker Relationship Specialty Start Date End Date Esteban Anand MD [address] [place] [phone] PCP - General Family Medicine 02/06/19
[2024-11-25 14:33] LABS: Basophils Percent Auto 0.7 % (0.2-1.2); Eosinophils Absolute Auto 0.1 K/mm3 (0-0.3); Eosinophils Percent Auto 1.8 % (0-4.4); Hematocrit 24.7 % (37.0-47.0); Immature Granulocyte Absolute 0.01 K/mm3 (0.00-0.031); Immature Granulocyte Percent A 0.2 % (0-0.5); Lymphocytes Absolute Auto 1.13 K/mm3 (0.9-3.2); Lymphocytes Percent Auto 20.1 % (18.3-44.2); Mean Corpuscular HGB Conc 27.5 g/dl (32-36); Mean Corpuscular Hemoglobin 20.8 pg (26-34); Mean Corpuscular Volume 75.5 fl (80-100); Mean Platelet Volume 10.3 fl (7.4-10.4); Monocytes Absolute Auto 0.6 K/mm3 (0.1-0.6); Monocytes Percent Auto 9.8 % (2.6-8.5); Neutrophils Absolute Auto 3.8 K/mm3 (1.3-6.7); Neutrophils Percent Auto 67.4 % (45.5-73.1); Nucleated Red Blood Cells Perc 0.4 % (0.0-0.2); Platelet Count Result 282 k/mm3 (150-375); Red Blood Count 3.27 M/mm3 (4.2-5.4); Red Cell Distribution Width 19.7 % (11.5-14.5); White Blood Count 5.6 K/mm3 (4.5-10.0)
[2024-11-25 15:08] LABS: Hemoglobin 6.8 g/dL (12.0-15.0)
[2024-11-25 15:10] LABS: Anisocytosis 2+; Platelet Estimate Adequate (Adequate)
[2024-11-25 15:11] LABS: Hypochromasia 1+
[2024-11-25 15:54] LABS: Iron 21 ug/dL (37-170)
[2024-11-25 16:04] LABS: Percent Iron Saturation 4 % (20-50)
[2024-11-25 16:26] LABS: Thyroid Stimulating Hormone Reflex 0.465 uIU/mL (0.465-4.68)
[2024-11-25 19:12] LABS: Alanine Aminotransferase 18 U/L (6-35); Albumin Level 3.9 g/dL (3.5-5.1); Alkaline Phosphatase 51 U/L (38-126); Anion Gap 6 mmol/L (4-12); Aspartate Amino Transferase 28 U/L (14-36); Bilirubin,Total 0.3 mg/dL (0.2-1.3); Blood Urea Nitrogen 13 mg/dL (7-17); Calcium 8.7 mg/dL (8.4-10.2); Carbon Dioxide 29 mmol/L (22-30); Chloride 107 mmol/L (98-107); Estimated Glomerular Filt Rate > 60; Glucose 117 mg/dL (65-110); Potassium 4.1 mmol/L (3.4-5.0); Sodium 142 mmol/L (137-145)
[2024-11-25 19:21] LABS: NT Pro B Type Natriuretic Pept 409 pg/mL (19.9-100)
== END 2024-11-25 14:19 | disposition home or self-care (01) ==
LOC: ANHLAB 14:19
PROVIDERS: PCP Family Medicine Adolescent Medicine; Visit Provider Nurse Practitioner Family
DX: R53.83 Other fatigue (principal)
CPT/HCPCS: 36415; 71046; 80053; 82607; 83540; 83550; 83880; 84443; 85025

== ENCOUNTER 2024-11-25 16:50 | Emergency (ER) | payer OTHER, SELFPAY ==
[2024-11-25] VITALS (9 sets, daily range): BP systolic 126–142; BP diastolic 69–98; PULSE 75–95; RESP 13–20; TEMP 36.6–37.2; O2SAT 98–100
--- OUTSIDE RECORDS SUMMARY | 2024-11-25 16:51 | XMS_ITS | Continuity of Care Document ---
Author Organization [facility] Address [address] [place] [address] Phone Care Team Providers Care Injection Molding Technician Name Role Phone Drew Pizano MD Unavailable [...] Providers Copied on Encounter [facility], [address], [place], [address], [place] tel:[phone] [facility] No Information 6 Jerica Russell. [address], [place], [place], [id number] . tel: [phone] DISABILITY EXAMINATION [facility], [address], [place], [address], [place] tel:[phone] [facility] Right rotator cuff tendonitisRadicul opathy affecting upper extremity 6 Jerica Russell. [address], [place], [place], [id number] . tel: [phone] DISABILITY EXAMINATION [facility], [address], [place], [address], [place] tel:[phone] [facility] Cervical strainNeck pain Oct- 5-201 5 Jerica Russell. [address], [place], [place], [id number] . tel: [phone] Family History Family Member Type Diagnosis Age [...]
--- OUTSIDE RECORDS SUMMARY | 2024-11-25 16:51 | XMS_ITS | Clinical Summary ---
Author Organization [facility] [employer] Address [address] [place] [address] Care Team Providers Care Correctional Officer Chief Name Role Phone Esteban Anand MD Primary Care Provider + Source Comments [facility] Affiliates and Associated Physician Practices is amultiple site organization consisting of ambulatory clinics and hospital sitesin [place], [place], [place] and [place]. This disclosure is being madepursuant to the Care Everywhere program and may not contain all information available regarding this patient. 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
--- NOTE | 2024-11-25 18:22 | ED_ITS ---
HPI - Recheck/Abnormal Lab/Rx General Chief Complaint: Recheck/Abnormal Lab/Rx <VASYL Membreno Last Filed: 11/25/24 18:32> Stated Complaint: my doctor sent me for a blood transfusion <VASYL Membreno Last Filed: 11/25/24 18:32> Time Seen by Provider: 11/25/24 18:23 <VASYL Membreno Last Filed: 11/25/24 18:32> Focused HPI: Patient is a 49 y/o female who presents to the ED with c/o abnormal outpatient labs. Patient reports over the past 1 week, she has been having swelling in her legs, SOB, dizziness, fatigue/weakness. She went to the primary care doctor today and had outpatient labs performed which showed low hemoglobin at 6.8 (performed at [facility]). She does report hx of anemia approx 5 years ago, was on iron supplements at that time, but is no longer taking this. Has never had a blood transfusion before. Patient is not on any anticoagulation. Denies epistaxis, hematuria, vaginal bleeding, melena, rectal bleeding. Denies abdominal pain. Denies CP. GENERAL: Well-appearing, morbidly obese with BMI of 40.0, and in no acute distress. HEAD: Normocephalic, atraumatic. CHEST: Clear to auscultation. ?No respiratory distress. HEART: Regular rate and rhythm.? NEURO: ?Alert and oriented x3. Patient screened in triage and initial orders placed.? ?Additional care and disposition to be based upon?diagnostic testing and treatment. <VASYL Membreno Last Filed: 11/25/24 18:32> Source: patient and old records reviewed <VASYL Membreno Last Filed: 11/25/24 18:32> Mode of arrival: ambulatory <VASYL Membreno Last Filed: 11/25/24 18:32> Limitations: no limitations <VASYL Membreno Last Filed: 11/25/24 18:32> History of Present Illness HPI narrative: I agree with the above HPI 49-year-old female present to the emergency department for evaluation for outpatient labs. Patient states she does have previous history of anemia and did have a very heavy period last month. Patient denies any current chest pain shortness of breath nausea vomiting diarrhea. She denies any hematemesis or hematochezia. Patient denies any current vaginal bleeding. <Renzo Whaley MD - Last Filed: 11/26/24 08:02> Related Data Home Medications: Home Medications ?Medication ?Instructions ?Recorded ?Confirmed ?Last Taken ?Type ferrous sulfate 325 mg (65 mg 325 mg PO DAILY 08/11/21 11/25/24 02/18/23 History iron) tablet (Feosol) <Kateryna Ronquillo PA-C - Last Filed: 11/25/24 18:32> Allergies/Adverse Reactions: Allergies Allergy/AdvReac Type Severity Reaction Status Date / Time No Known Allergies Allergy Verified 11/25/24 13:04 <Kateryna Ronquillo PA-C - Last Filed: 11/25/24 18:32> Review of Systems 2 Review of Systems: All systems reviewed & are unremarkable except as noted in HPI and below <Renzo Whaley MD - Last Filed: 11/26/24 08:02> [facility] Past Medical History Medical History: Medical History Umbilical hernia Chronic low back pain Overactive bladder Obesity <Kateryna Ronquillo PA-C - Last Filed: 11/25/24 18:32> Surgical History Surgical History: Surgical History History of cholecystectomy (02/2023) History of tubal ligation History of colonoscopy History of esophagogastroduodenoscopy (EGD) <Kateryna Ronquillo PA-C - Last Filed: 11/25/24 18:32> Family History Family History: Family History Father Diabetes mellitus Hypertension Cerebrovascular accident Grandparent Carcinoma of colon Family history of malignant neoplasm Father Acute myocardial infarction Colon polyp Family history of gout Mother Depression Other Family history of arthritis <Kateryna Ronquillo PA-C - Last Filed: 11/25/24 18:32> Social History Social History: Social History Smoking packs per day: 1 Smoking cigarettes per day: 20.0 Years smoked: 25 Smoking pack-years: 25.00 Smoking status: Current every day smoker Tobacco type: cigarettes Second hand tobacco smoke exposure: No Alcohol intake: current Drinks per week: 1 Alcohol use details: occasional alcohol use Substance use: never Substance use type: does not use Do You Feel Safe in your Home?: Yes Lack of Transportation: No Lack of Food: Sometimes True Current Housing: I Have Housing Concerned About Future Housing: No Difficulty Paying Gas/Electric Bills: YES Difficulty Paying for Meds: No Currently Unemployed: Decline to Answer Education: High School Diploma/GED Difficulty w/ Childcare or Family Care: No Living arrangements: with family Additional living arrangements comments: LIVES WITH CHILDEREN Occupation/Education: occupation 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 HEAD: normocephalic, atraumatic. EYES: PERRLA/EOMI, conjunctivae clear. NOSE: Normal no drainage EARS:TMS clear with good light reflex. THROAT: Pharynx clear, no exudate. NECK: Supple. No adenopathy, no masses. RESPIRATORY: Airway patent, respirations nonlabored. Clear to auscultation bilaterally, no rales, rhonchi, wheezing. CARDIOVASCULAR: Regular rate and rhythm without murmurs rubs or gallops. ABDOMINAL: Soft, nontender, nondistended, normal bowel sounds MUSCULOSKELETAL: Moves all extremities. Strength/ROM intact, No edema, No calf tenderness. NEURO: Alert. Cranial nerves II through XII intact. Good gait. Good coordination SKIN: Warm, dry. Normal Color <Renzo Whaley MD - Last Filed: 11/26/24 08:02> Course Vital Signs Vital signs: Vital Signs Temperature 97.8 F 11/25/24 16:58 Pulse Rate 95 11/25/24 16:58 Respiratory Rate 16 11/25/24 16:58 Blood Pressure 141/71 H 11/25/24 16:58 Pulse Oximetry 98 11/25/24 16:58 Temperature 98.3 F 11/26/24 00:15 Pulse Rate 78 11/26/24 00:15 Respiratory Rate 16 11/26/24 00:15 Blood Pressure 139/72 11/26/24 00:15 Pulse Oximetry 98 11/26/24 00:15 <Kateryna Ronquillo PA-C - Last Filed: 11/25/24 18:32> Vital Signs Temperature 97.8 F 11/25/24 16:58 Pulse Rate 95 11/25/24 16:58 Respiratory Rate 16 11/25/24 16:58 Blood Pressure 141/71 H 11/25/24 16:58 Pulse Oximetry 98 11/25/24 16:58 Temperature 98.3 F 11/26/24 00:15 Pulse Rate 78 11/26/24 00:15 Respiratory Rate 16 11/26/24 00:15 Blood Pressure 139/72 11/26/24 00:15 Pulse Oximetry 98 11/26/24 00:15 <Renzo Whaley MD - Last Filed: 11/26/24 08:02> MDM - Recheck/Abnormal Lab/Rx MDM Narrative Medical decision making narrative: MSE by LY in triage. <Kateryna Ronquillo PA-C - Last Filed: 11/25/24 18:32> MSE by LY in triage. 49-year-old female present to the emergency department for evaluation for outpatient labs showing anemia. Patient is reticular count was 14.3. Patient's ferritin was 3.85. Patient's blood type was A positive. Patient states that her anemia was secondary to heavy vaginal bleeding during her last menstrual period. Patient was encouraged close follow-up with OB Gyne regarding the feet. And patient will be provided follow-up with Hematology-Oncology. <Renzo Whaley MD - Last Filed: 11/26/24 08:02> Differential Diagnosis Differential diagnosis: Likely other (Anemia, vaginal bleeding, upper GI bleed, lower GI bleed) < Renzo Whaley MD - Last Filed: 11/26/24 08:02> Lab Data Result diagrams: 11/25/24 18:31 <Kateryna Ronquillo PA-C - Last Filed: 11/25/24 18:32> Labs: Lab Results 11/25/24 11/25/24 11/25/24 Range/Units 18:31 18:31 18:31 Absolute Retic 0.05 (0.02-0.10) 10^6/uL Percent Retic 1.50 (0.7-4.3) % Immature Retic Fraction 6.4 (3.0-15.9) % Retic Hgb Content 14.3 L (28.2-36.6) pg Sodium Cancelled 144 Potassium Cancelled 3.9 Chloride Cancelled Carbon Dioxide Anion Gap BUN Creatinine Estim Creat Clear Calc Estimated GFR Glucose Calcium Ferritin (6.24-137) ng/mL Total Bilirubin AST ALT Alkaline Phosphatase Troponin I (0.000-0.034) ng/mL NT-Pro-B Natriuret Pep Total Protein Albumin Blood Type Antibody Screen Crossmatch 11/25/24 11/25/24 11/25/24 Range/Units 18: 18: 18:31 Absolute Retic (0.02-0.10) 10^6/uL Percent Retic (0.7-4.3) % Immature Retic Fraction (3.0-15.9) % Retic Hgb Content (28.2-36.6) pg Sodium Potassium Chloride 108 H Carbon Dioxide Cancelled 28 Anion Gap Cancelled 8 BUN Cancelled Creatinine Estim Creat Clear Calc Estimated GFR Glucose Calcium Ferritin (6.24-137) ng/mL Total Bilirubin AST ALT Alkaline Phosphatase Troponin I (0.000-0.034) ng/mL NT-Pro-B Natriuret Pep Total Protein Albumin Blood Type Antibody Screen Crossmatch 11/25/24 11/25/24 11/25/24 Range/Units 18:31 18:31 18:31 Absolute Retic (0.02-0.10) 10^6/uL Percent Retic (0.7-4.3) % Immature Retic Fraction (3.0-15.9) % Retic Hgb Content (28.2-36.6) pg Sodium Potassium Chloride Carbon Dioxide Anion Gap BUN 13 Creatinine Cancelled 0.61 L Estim Creat Clear Calc Cancelled 97 Estimated GFR Cancelled Glucose Calcium Ferritin (6.24-137) ng/mL Total Bilirubin AST ALT Alkaline Phosphatase Troponin I (0.000-0.034) ng/mL NT-Pro-B Natriuret Pep Total Protein Albumin Blood Type Antibody Screen Crossmatch 11/25/24 11/25/24 11/25/24 Range/Units 18:31 18:31 18:31 Absolute Retic (0.02-0.10) 10^6/uL Percent Retic (0.7-4.3) % Immature Retic Fraction (3.0-15.9) % Retic Hgb Content (28.2-36.6) pg Sodium Potassium Chloride Carbon Dioxide Anion Gap BUN Creatinine Estim Creat Clear Calc Estimated GFR > 60 Glucose Cancelled 104 Calcium Cancelled 9.1 Ferritin 3.85 L (6.24-137) ng/mL Total Bilirubin Cancelled AST ALT Alkaline Phosphatase Troponin I (0.000-0.034) ng/mL NT-Pro-B Natriuret Pep Total Protein Albumin Blood Type Antibody Screen Crossmatch 11/25/24 11/25/24 11/25/24 Range/Units 18:31 18:31 18:31 Absolute Retic (0.02-0.10) 10^6/uL Percent Retic (0.7-4.3) % Immature Retic Fraction (3.0-15.9) % Retic Hgb Content (28.2-36.6) pg Sodium Potassium Chloride Carbon Dioxide Anion Gap BUN Creatinine Estim Creat Clear Calc Estimated GFR Glucose Calcium Ferritin (6.24-137) ng/mL Total Bilirubin 0.2 AST Cancelled 30 ALT Cancelled 20 Alkaline Phosphatase Cancelled Troponin I (0.000-0.034) ng/mL NT-Pro-B Natriuret Pep Total Protein Albumin Blood Type Antibody Screen Crossmatch 11/25/24 11/25/24 11/25/24 Range/Units 18:31 18:31 18:31 Absolute Retic (0.02-0.10) 10^6/uL Percent Retic (0.7-4.3) % Immature Retic Fraction (3.0-15.9) % Retic Hgb Content (28.2-36.6) pg Sodium Potassium Chloride Carbon Dioxide Anion Gap BUN Creatinine Estim Creat Clear Calc Estimated GFR Glucose Calcium Ferritin (6.24-137) ng/mL Total Bilirubin AST ALT Alkaline Phosphatase 53 Troponin I < 0.012 (0.000-0.034) ng/mL NT-Pro-B Natriuret Pep Cancelled 413 H Total Protein Cancelled 7.0 Albumin Cancelled Blood Type Antibody Screen Crossmatch 11/25/24 Range/Units 18:31 Absolute Retic (0.02-0.10) 10^6/uL Percent Retic (0.7-4.3) % Immature Retic Fraction (3.0-15.9) % Retic Hgb Content (28.2-36.6) pg Sodium Potassium Chloride Carbon Dioxide Anion Gap BUN Creatinine Estim Creat Clear Calc Estimated GFR Glucose Calcium Ferritin (6.24-137) ng/mL Total Bilirubin AST ALT Alkaline Phosphatase Troponin I (0.000-0.034) ng/mL NT-Pro-B Natriuret Pep Total Protein Albumin 4.1 Blood Type A Positive Antibody Screen Negative Crossmatch See Detail <Kateryna Ronquillo PA-C - Last Filed: 11/25/24 18:32> Lab Results 11/25/24 11/25/24 11/25/24 Range/Units 18:31 18:31 18:31 Absolute Retic 0.05 (0.02-0.10) 10^6/uL Percent Retic 1.50 (0.7-4.3) % Immature Retic Fraction 6.4 (3.0-15.9) % Retic Hgb Content 14.3 L (28.2-36.6) pg Sodium Cancelled 144 Potassium Cancelled 3.9 Chloride Cancelled Carbon Dioxide Anion Gap BUN Creatinine Estim Creat Clear Calc Estimated GFR Glucose Calcium Ferritin (6.24-137) ng/mL Total Bilirubin AST ALT Alkaline Phosphatase Troponin I (0.000-0.034) ng/mL NT-Pro-B Natriuret Pep Total Protein Albumin Blood Type Antibody Screen Crossmatch 11/25/24 11/25/24 11/25/24 Range/Units 18:31 18:31 18:31 Absolute Retic (0.02-0.10) 10^6/uL Percent Retic (0.7-4.3) % Immature Retic Fraction (3.0-15.9) % Retic Hgb Content (28.2-36.6) pg Sodium Potassium Chloride 108 H Carbon Dioxide Cancelled 28 Anion Gap Cancelled 8 BUN Cancelled Creatinine Estim Creat Clear Calc Estimated GFR Glucose Calcium Ferritin (6.24-137) ng/mL Total Bilirubin AST ALT Alkaline Phosphatase Troponin I (0.000-0.034) ng/mL NT-Pro-B Natriuret Pep Total Protein Albumin Blood Type Antibody Screen Crossmatch 11/25/24 11/25/24 11/25/24 Range/Units 18:31 18:31 18:31 Absolute Retic (0.02-0.10) 10^6/uL Percent Retic (0.7-4.3) % Immature Retic Fraction (3.0-15.9) % Retic Hgb Content (28.2-36.6) pg Sodium Potassium Chloride Carbon Dioxide Anion Gap BUN 13 Creatinine Cancelled 0.61 L Estim Creat Clear Calc Cancelled 97 Estimated GFR Cancelled Glucose Calcium Ferritin (6.24-137) ng/mL Total Bilirubin AST ALT Alkaline Phosphatase Troponin I (0.000-0.034) ng/mL NT-Pro-B Natriuret Pep Total Protein Albumin Blood Type Antibody Screen Crossmatch 11/25/24 11/25/24 11/25/24 Range/Units 18:31 18:31 18:31 Absolute Retic (0.02-0.10) 10^6/uL Percent Retic (0.7-4.3) % Immature Retic Fraction (3.0-15.9) % Retic Hgb Content (28.2-36.6) pg Sodium Potassium Chloride Carbon Dioxide Anion Gap BUN Creatinine Estim Creat Clear Calc Estimated GFR > 60 Glucose Cancelled 104 Calcium Cancelled 9.1 Ferritin 3.85 L (6.24-137) ng/mL Total Bilirubin Cancelled AST ALT Alkaline Phosphatase Troponin I (0.000-0.034) ng/mL NT-Pro-B Natriuret Pep Total Protein Albumin Blood Type Antibody Screen Crossmatch 11/25/24 11/25/24 11/25/24 Range/Units 18:31 18:31 18:31 Absolute Retic (0.02-0.10) 10^6/uL Percent Retic (0.7-4.3) % Immature Retic Fraction (3.0-15.9) % Retic Hgb Content (28.2-36.6) pg Sodium Potassium Chloride Carbon Dioxide Anion Gap BUN Creatinine Estim Creat Clear Calc Estimated GFR Glucose Calcium Ferritin (6.24-137) ng/mL Total Bilirubin 0.2 AST Cancelled 30 ALT Cancelled 20 Alkaline Phosphatase Cancelled Troponin I (0.000-0.034) ng/mL NT-Pro-B Natriuret Pep Total Protein Albumin Blood Type Antibody Screen Crossmatch 11/25/24 11/25/24 11/25/24 Range/Units 18:31 18:31 18:31 Absolute Retic (0.02-0.10) 10^6/uL Percent Retic (0.7-4.3) % Immature Retic Fraction (3.0-15.9) % Retic Hgb Content (28.2-36.6) pg Sodium Potassium Chloride Carbon Dioxide Anion Gap BUN Creatinine Estim Creat Clear Calc Estimated GFR Glucose Calcium Ferritin (6.24-137) ng/mL Total Bilirubin AST ALT Alkaline Phosphatase 53 Troponin I < 0.012 (0.000-0.034) ng/mL NT-Pro-B Natriuret Pep Cancelled 413 H Total Protein Cancelled 7.0 Albumin Cancelled Blood Type Antibody Screen Crossmatch 11/25/24 Range/Units 18:31 Absolute Retic (0.02-0.10) 10^6/uL Percent Retic (0.7-4.3) % Immature Retic Fraction (3.0-15.9) % Retic Hgb Content (28.2-36.6) pg Sodium Potassium Chloride Carbon Dioxide Anion Gap BUN Creatinine Estim Creat Clear Calc Estimated GFR Glucose Calcium Ferritin (6.24-137) ng/mL Total Bilirubin AST ALT Alkaline Phosphatase Troponin I (0.000-0.034) ng/mL NT-Pro-B Natriuret Pep Total Protein Albumin 4.1 Blood Type A Positive Antibody Screen Negative Crossmatch See Detail <Renzo Whaley MD - Last Filed: 11/26/24 08:02> Discharge Plan Discharge Clinical Impression: Anemia <Kateryna Ronquillo PA-C - Last Filed: 11/25/24 18:32> Patient Disposition: Home <Kateryna Ronquillo PA-C - Last Filed: 11/25/24 18:32> Condition: Stable <Kateryna Ronquillo PA-C - Last Filed: 11/25/24 18:32> Instructions: Antibiotic Form, Anemia (ED) <Kateryna Ronquillo PA-C - Last Filed: 11/25/24 18:32> Additional Instructions: Have close follow-up with OB Gyne regarding your having menstrual cycle and have close follow-up with Hematology/Oncology regarding anemia. If you have any worsening symptoms then please call or return to the emergency department. <Kateryna Ronquillo PA-C - Last Filed: 11/25/24 18:32> Patient Language: Icelandic <Kateryna Ronquillo PA-C - Last Filed: 11/25/24 18:32> Prescriptions: No Action ferrous sulfate [Feosol] 325 mg (65 mg iron) tablet 325 mg PO DAILY Cholestyramine Light 4 gram powder 4 g PO DAILY Qty: 210 5RF Rx Instructions: administer w/meal; avoid other meds within 1hr before or 4-6hr after dose budesonide-formoterol [Symbicort] 160-4.5 mcg/actuation HFA aerosol inhaler 2 puff inhalation Q12H Qty: 10.2 0RF trazodone 100 mg tablet 100 mg PO QHS Qty: 90 2RF dicyclomine 10 mg capsule See Rx Instructions .ROUTE .COMPLEX Qty: 270 1RF Dose Instruction: TAKE 1 CAPSULE BY MOUTH THREE TIMES A DAY Rx Instructions: TAKE 1 CAPSULE BY MOUTH THREE TIMES A DAY omeprazole 20 mg capsule,delayed release(DR/EC) 20 mg PO BID Qty: 180 3RF indomethacin 50 mg capsule See Rx Instructions .ROUTE .COMPLEX Qty: 90 3RF Dose Instruction: TAKE 1 CAPSULE BY MOUTH THREE TIMES A DAY NEEDED FOR PAIN Rx Instructions: TAKE 1 CAPSULE BY MOUTH THREE TIMES A DAY NEEDED FOR PAIN tramadol 50 mg tablet See Rx Instructions PO Q6H PRN (Reason: pain) Qty: 120 3RF Rx Instructions: 1 to 2 tablets PO every 6 hours PRN; cyclobenzaprine 10 mg tablet See Rx Instructions .ROUTE .COMPLEX Qty: 30 0RF Dose Instruction: TAKE 1 TABLET BY MOUTH THREE TIMES A DAY NEEDED FOR MUSCLE SPASMS Rx Instructions: TAKE 1 TABLET BY MOUTH THREE TIMES A DAY NEEDED FOR MUSCLE SPASMS <Kateryna Ronquillo PA-C - Last Filed: 11/25/24 18:32> Follow-up/Referrals: Carrillo Dutta MD [Physician] - Esteban Anand MD [Primary Care Provider] - <Kateryna Ronquillo PA-C - Last Filed: 11/25/24 18:32>
--- NOTE | 2024-11-25 18:28 | ECG_ITS ---
Test Date: 2024-11-25 18:41:22 Measurements Intervals [place] Rate: 83 P: 52 GA: 149 QRS: 36 QRSD: 87 T: 41 QT: 352 QTc: 415 Interpretive Statements SINUS RHYTHM No previous ECG available for comparison Electronically Signed On 11-26-2024 13:56:36 CDT by Dane Albarado M.D.
[2024-11-25 18:42] LABS: Immature Reticulocyte Fraction 6.4 % (3.0-15.9); Reticulocyte Hemoglobin Conten 14.3 pg (28.2-36.6); Reticulocytes Absolute 0.05 10^6/uL (0.02-0.10)
[2024-11-25 18:57] LABS: Alanine Aminotransferase 20 U/L (6-35); Albumin Level 4.1 g/dL (3.5-5.1); Alkaline Phosphatase 53 U/L (38-126); Anion Gap 8 mmol/L (4-12); Aspartate Amino Transferase 30 U/L (14-36); Bilirubin,Total 0.2 mg/dL (0.2-1.3); Blood Urea Nitrogen 13 mg/dL (7-17); Calcium 9.1 mg/dL (8.4-10.2); Carbon Dioxide 28 mmol/L (22-30); Chloride 108 mmol/L (98-107); Estimated CRCL calculation 97 ml/min; Estimated Glomerular Filt Rate > 60; Glucose 104 mg/dL (65-110); Potassium 3.9 mmol/L (3.4-5.0); Sodium 144 mmol/L (137-145)
[2024-11-25 19:08] LABS: NT Pro B Type Natriuretic Pept 413 pg/mL (19.9-100); Troponin I < 0.012 ng/mL (0.000-0.034)
--- OUTSIDE RECORDS SUMMARY | 2024-11-25 19:39 | XMS_ITS | Clinical Summary ---
Author Organization [facility] Address [address] [place] [address] Care Team Providers Care Hardboard Panel Printer Name Role Phone Esteban Anand MD Primary Care Provider + Source Comments [facility],non-[facility] health Affiliates and Associated Physician Practices is amultiple site organization consisting of ambulatory clinics and hospital sitesin [place], [place], [place] and [place]. This disclosure is being madepursuant to the Care Everywhere program and may not contain all information available regarding this patient. 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
--- OUTSIDE RECORDS SUMMARY | 2024-11-25 19:39 | XMS_ITS | Continuity of Care Document ---
Author Organization [facility] Address [address] [place] [address] Phone Care Team Providers Care Hybrid Technologist Name Role Phone Drew Pizano MD Unavailable [...] Providers Copied on Encounter [facility], [address], [place], [address], [place] tel:[phone] [facility] No Information [address] Jerica Russell. [address], [place], [place], [id number] . tel: [phone] DISABILITY EXAMINATION [facility], [address], [place], [address], [place] tel:[phone] [facility] Right rotator cuff tendonitisRadicul opathy affecting upper extremity 6 Jerica Russell. [address], [place], [place], [id number] . tel: [phone] DISABILITY EXAMINATION [facility], [address], [place], [address], [place] tel:[phone] [facility] Cervical strainNeck pain Oct- 5-201 5 Jerica Russell. [address], [place], [place], [id number] . tel: [phone] Family History Family Member Type Diagnosis Age At Onset No Information Payers Payer name Insurance type Covered libertarian ID Authoriza tion(s) No Information Social History [...]
[2024-11-25 19:41] LABS: Ferritin 3.85 ng/mL (6.24-137)
[2024-11-25] MEDS: TUBING, BLOOD SET 1 EACH XX ×2 (19:57→22:28)
[2024-11-25] MEDS: SODIUM CHLORIDE 0.9% IV 250 ML 30 ML IV CONT (19:57)
[2024-11-26 00:15] VITALS: BP 139/72; PULSE 78; RESP 16; TEMP 36.8; O2SAT 98
== END 2024-11-26 00:20 | disposition home or self-care (01) ==
PROVIDERS: Physician Assistant; Emergency Provider Emergency Medicine; PCP Family Medicine Adolescent Medicine
DX: D64.9 Anemia, unspecified (principal); N32.81 Overactive bladder; E66.9 Obesity, unspecified; Z68.41 Body mass index [BMI] 40.0-44.9, adult; F17.210 Nicotine dependence, cigarettes, uncomplicated; Z90.49 Acquired absence of other specified parts of digestive tract; Z79.899 Other long term (current) drug therapy
CPT/HCPCS: 36415; 36430; 80053; 82728; 83880; 84484; 85046; 86850; 86900; 86901; 86923; 93005; 96360; 96361; 99285; J7050; P9016

== ENCOUNTER 2025-02-14 15:38 | Emergency (ER) | payer OTHER, SELFPAY ==
[2025-02-14 15:45] VITALS: BP 128/73; PULSE 91; RESP 16; TEMP 36.2; O2SAT 97
--- NOTE | 2025-02-14 15:57 | ECG_ITS ---
Test Date: 2025-02-14 16:13:04 Measurements Intervals [place] Rate: 79 P: 52 NE: 152 QRS: 23 QRSD: 89 T: 44 QT: 373 QTc: 428 Interpretive Statements SINUS RHYTHM BASELINE ARTIFACT- I, II, III, AVR, AVL ,AVF, V1-V2 NORMAL ECG Compared to ECG 11/25/2024 18:41:22 No significant changes Electronically Signed On 02-15-2025 08:31:14 CDT by Gurdeep Jacosbon D.O.
[2025-02-14 16:02] VITALS: BP 128/84; PULSE 82
[2025-02-14 16:04] VITALS: BP 132/83; PULSE 87
[2025-02-14 16:06] VITALS: BP 141/80; PULSE 97
--- NOTE | 2025-02-14 16:12 | ED_ITS ---
HPI - Nausea/Vomiting/Diarrhea General Chief complaint: Headache Stated complaint: headcahe/dizzy/nausea/vomiting Time Seen by Provider: 02/14/25 16:15 Source: patient and RN notes reviewed Mode of arrival: ambulatory Limitations: no limitations History of Present Illness HPI Narrative: 49-year-old female presents [facility] complaining of headache for approximately 1 week. Patient reports that is a mild headache and she has not taken anything to help with the headache. Since then patient says the headache is gotten worse she has developed nausea since 5 days ago. Patient said she did vomit a few x2 days ago but has not vomited since. Patient also reports an episode of loose stools. She also reports feeling dizzy, lightheaded, and having photophobia. She states that she feels more dizzy and lightheaded when she stands up and she feels much better when she is lying down. She denies any blood in her stools or vomiting blood. Patient denies any fevers, body aches, chills, chest pain, shortness of breath, slurred speech, facial droop, vision problems, blurry vision, confusion, loss of consciousness, falls, or any other symptoms. Patient has a history of obesity, GERD, fatigue. Patient rates her headache a 10/15. Related Data Home Medications ?Medication ?Instructions ?Recorded ?Confirmed ?Last Taken ?Type ferrous sulfate 325 mg (65 mg 325 mg PO DAILY 08/11/21 11/25/24 02/18/23 History iron) tablet (Feosol) Allergies Allergy/AdvReac Type Severity Reaction Status Date / Time No Known Allergies Allergy Verified 02/14/25 15:39 Review of Systems Review of Systems: CONSTITUTIONAL: Denies fever, chills, or sweats. EYES: Denies visual changes, redness, or discharge. ENT: Denies rhinorrhea, congestion, sore throat, or otalgia. CARDIOVASCULAR: Denies chest pain, palpitations, or edema. Positive for dizziness and lightheadedness. RESPIRATORY: Denies cough or dyspnea. GASTROINTESTINAL: Denies abdominal pain, nausea, or diarrhea. Positive for nausea GENITOURINARY: Denies dysuria or hematuria. SKIN: Denies rash or itching. MUSCULOSKELETAL: Denies back pain, joint pain, or myalgia. NEUROLOGIC: Denies numbness, loss of consciousness, slurred speech, focal weakness, facial droop, confusion, seizures, or weakness. Positive for headaches. PSYCHIATRIC: Denies anxiety or depression. All other systems reviewed are negative, except as documented in HPI. FORMERLY [facility] Past Medical History Medical History Umbilical hernia Chronic low back pain Overactive bladder Obesity Surgical History Surgical History History of cholecystectomy (02/2023) History of tubal ligation History of colonoscopy History of esophagogastroduodenoscopy (EGD) Family History Family History Father Diabetes mellitus Hypertension Cerebrovascular accident Grandparent Carcinoma of colon Family history of malignant neoplasm Father Acute myocardial infarction Colon polyp Family history of gout Mother Depression Other Family history of arthritis Social History Social History Smoking packs per day: 1 Smoking cigarettes per day: 20.0 Years smoked: 25 Smoking pack-years: 25.00 Smoking status: Current every day smoker Tobacco type: cigarettes Second hand tobacco smoke exposure: No Alcohol intake: current Drinks per week: 1 Alcohol use details: occasional alcohol use Substance use: never Substance use type: does not use Do You Feel Safe in your Home?: Yes Lack of Transportation: No Lack of Food: Sometimes True Current Housing: I Have Housing Concerned About Future Housing: No Difficulty Paying Gas/Electric Bills: YES Difficulty Paying for Meds: No Currently Unemployed: Decline to Answer Education: High School Diploma/GED Difficulty w/ Childcare or Family Care: No Living arrangements: with family Additional living arrangements comments: LIVES WITH CHILDEREN Occupation/Education: occupation 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 There is no relevant family history pertinent to the patient complaint. Exam Narrative: GENERAL: This is a well-nourished, well-developed adult, in no apparent distress. They are non ill-appearing, nontoxic appearing. HEAD: normocephalic, atraumatic. EYES: Sclera clear/white. Conjunctiva normal. Vision is grossly intact. Extraocular movements intact. Pupils PERRLA. No nystagmus. EARS: External ears normal, auditory canals clear and without drainage, TMs normal without perforation. Hearing grossly intact. NOSE: External nose normal with no obvious nasal discharge, nasal turbinates without redness, no rhinorrhea. THROAT: Mucous membranes moist, posterior pharynx clear, without erythema or swelling. Uvula midline. NECK: Neck supple, non-tender without lymphadenopathy, masses or thyromegaly. CARDIOVASCULAR: Regular rate and rhythm without murmurs, clicks,, gallops, or rubs. RESPIRATORY: Clear to auscultation. Breath sounds equal bilaterally. No wheezes, rales, or rhonchi. Normal respiratory exam. GASTROINTESTINAL: Abdomen soft, non-tender, nondistended. Bowel sounds are active. No hepato-splenomegaly, or palpable masses. No guarding or rigidity. No rebound tenderness. SKIN: warm, Dry, intact with no suspicious lesions or rash, good texture and turgor. NEURO: awake, alert, and oriented to person, place and time. There were no obvious focal neurologic abnormalities. Cranial nerves 2-12 grossly intact. No pronator drift. No limb ataxia. Bar Attendant strength 5/5 equal bilaterally, arm strength 5/5 bilaterally, leg strength 5/5 equal bilaterally. Normal sensation. Normal dorsiflexion and plantar flexion of feet. No facial droop. Speech is clear. Tongue is midline. EXTREMITIES: No joint tenderness, effusion, or edema noted. BACK: Nontender without deformity. No CVA tenderness. Course Course Emergency Course: Portions of this record may have been created with voice recognition software Level of Care: Express Care Visit Vital Signs Vital signs: Vital Signs Temperature 97.1 F L 02/14/25 15:45 Pulse Rate 91 02/14/25 15:45 Respiratory Rate 16 02/14/25 15:45 Blood Pressure 128/73 02/14/25 15:45 Pulse Oximetry 97 02/14/25 15:45 Oxygen Delivery Room Air 02/14/25 15:45 Temperature 97.1 F L 02/14/25 15:45 Pulse Rate 97 02/14/25 16:06 Respiratory Rate 16 02/14/25 15:45 Blood Pressure 141/80 H 02/14/25 16:06 Pulse Oximetry 97 02/14/25 15:45 Oxygen Delivery Room Air 02/14/25 15:45 Reviewed MDM - Nausea/Vomiting/Diarrhea MDM Narrative Medical decision making narrative: Rapid COVID and flu were negative. EKG sinus rhythm with no ischemic findings. No arrhythmias or ectopy noted. Orthostatics are normal. NIH score of 0. Neuro exam grossly unremarkable. Symptoms may be related to a migraine headache. No peritoneal findings, unremarkable abdominal exam. No evidence of dehydration. Patient given Toradol for pain, meclizine for dizziness and Zofran for nausea. Reassess in shows patient's symptoms significantly improved. She rates the headache a 2/10 now. Patient reports dizziness is much better and she has no longer nauseous. Patient able to keep water down in the room. Will discharge patient home meclizine as needed for dizziness, and Zofran as needed for nausea. Patient may take [id number] Tylenol or ibuprofen as needed for pain or headaches. Discussed physical exam findings. Advised supportive measures and signs/symptoms to go to the ER. Pt is appropriate for outpt treatment and f/u. Differential Diagnosis Differential diagnosis: Likely gastroenteritis and other (Migraine, headache, vertigo, orthostatic dehydration, viral infection) Lab Data Attestation: I reviewed the patient's lab results. Labs: Lab Results 02/14/25 Range/Units 15:54 POC Influenza A Ag Negative (Negative) POC Influenza B Ag Negative (Negative) POC SARS CoV-2 Ag Negative (Negative) ECG Data EKG #1: Attestation: I personally reviewed and interpreted this ECG as follows: ECG completion date: 02/14/25 ECG completion time: 16:13 Prior ECG tracings: not available for review EKG Interpretation: normal rate, sinus rhythm, no ectopy, no ST changes, normal QRS, normal QT and NL axis Critical Care Time Critical Care Time Critical Care Time: No Discharge Plan Discharge Clinical Impression: Headache Qualifiers: Headache type: unspecified Headache chronicity pattern: acute headache Intractability: not intractable Qualified Code(s): R51.9 - Headache, unspecified Patient Disposition: Home Condition: Stable Instructions: Migraine Headache (ED) Additional Instructions: Your EKG is normal today. Do not take any ibuprofen today. May resume ibuprofen tomorrow, 600 mg to 800 mg every 8 hours as needed for pain. You may take Tylenol today as needed for pain 1000 mg, every 6-8 hours as needed for pain, do not exceed 1000 mg at a time, do not exceed more than 4000 mg of Tylenol in a day. Take a Zofran as needed for nausea and vomiting. Take meclizine as needed for dizziness. Follow-up with PCP in 3-5 days. Rest and drink plenty of fluids. Drink electrolyte drinks such as Pedialyte or Gatorade. Go to the ER if he develops severe headaches, vision changes, severe dizziness, uncontrollable nausea and vomiting, one-sided weakness, slurred speech, facial drooping, you lose consciousness, seizures, or any serious concerns. Patient Language: Sami Prescriptions: New ondansetron 4 mg tablet,disintegrating 4 mg PO Q8H PRN (Reason: nausea and vomiting) Qty: 12 0RF meclizine 25 mg tablet 25 mg PO TID PRN (Reason: dizziness) Qty: 10 0RF No Action ferrous sulfate [Feosol] 325 mg (65 mg iron) tablet 325 mg PO DAILY Cholestyramine Light 4 gram powder 4 g PO DAILY Qty: 210 5RF Rx Instructions: administer w/meal; avoid other meds within 1hr before or 4-6hr after dose budesonide-formoterol [Symbicort] 160-4.5 mcg/actuation HFA aerosol inhaler 2 puff inhalation Q12H Qty: 10.2 0RF trazodone 100 mg tablet 100 mg PO QHS Qty: 90 2RF dicyclomine 10 mg capsule See Rx Instructions .ROUTE .COMPLEX Qty: 270 1RF Dose Instruction: TAKE 1 CAPSULE BY MOUTH THREE TIMES A DAY Rx Instructions: TAKE 1 CAPSULE BY MOUTH THREE TIMES A DAY omeprazole 20 mg capsule,delayed release(DR/EC) 20 mg PO BID Qty: 180 3RF indomethacin 50 mg capsule See Rx Instructions .ROUTE .COMPLEX Qty: 90 3RF Dose Instruction: TAKE 1 CAPSULE BY MOUTH THREE TIMES A DAY NEEDED FOR PAIN Rx Instructions: TAKE 1 CAPSULE BY MOUTH THREE TIMES A DAY NEEDED FOR PAIN cyclobenzaprine 10 mg tablet See Rx Instructions .ROUTE .COMPLEX Qty: 30 3RF Dose Instruction: TAKE 1 TABLET BY MOUTH THREE TIMES A DAY NEEDED FOR MUSCLE SPASMS Rx Instructions: TAKE 1 TABLET BY MOUTH THREE TIMES A DAY NEEDED FOR MUSCLE SPASMS tramadol 50 mg tablet See Rx Instructions PO Q6H PRN (Reason: pain) Qty: 120 3RF Rx Instructions: 1 to 2 tablets PO every 6 hours PRN; Follow-up/Referrals: Esteban Anand MD [Primary Care Provider] - Time of Disposition: 17:11
[2025-02-14 16:15] LABS: EDCOVIDSCREEN Negative (Negative); EDINFLUASCREEN Negative (Negative); EDINFLUBSCREEN Negative (Negative)
[2025-02-14] MEDS: ONDANSETRON HCL ODT 4 MG TABLET PO (16:37)
[2025-02-14] MEDS: MECLIZINE HCL 25 MG TABLET PO (16:37)
[2025-02-14] MEDS: KETOROLAC (*BKC) 60 MG/2 ML VIAL IM (16:38)
== END 2025-02-14 17:20 | disposition home or self-care (01) ==
PROVIDERS: PCP Family Medicine Adolescent Medicine
DX: R51.9 Headache, unspecified (principal); Z20.822 Contact with and (suspected) exposure to COVID-19; F17.210 Nicotine dependence, cigarettes, uncomplicated; E66.9 Obesity, unspecified; Z68.36 Body mass index [BMI] 36.0-36.9, adult; K21.9 Gastro-esophageal reflux disease without esophagitis
CPT/HCPCS: 87426; 87804; 93005; 96372; 99213; A9270; G0463; J1885